=== PATIENT | female | born 1995 | race Caucasian/White ===

== ENCOUNTER → 2016-03-16 | Outpatient (REF) | payer OTHER ==
[~2016-03-16] MED LIST: ACET50TA PO; FERR325T3 PO; FIOR1CAP PO; IBUP80TA PO; NORE0.353 PO; PRENATAL VITAMIN PO; PRENMIS3 PO; PRENTAB7 PO
== END ==
LOC: M LAB REF 13:41
PROVIDERS: ATTEND Advanced Practice Midwife
DX: O12.13 Gestational proteinuria, third trimester (principal); O99.353 Diseases of the nervous system complicating pregnancy, third trimester; R51 Headache; Z3A.00 Weeks of gestation of pregnancy not specified

== ENCOUNTER → 2016-03-23 | Outpatient (CLI) | payer OTHER ==
[2016-03-23 12:22] LABS: MEAN CORPUSCULAR HEMOGLOBIN 29.1 pg (27.0-33.0); MEAN CORPUSCULAR HGB CONC 33.7 g/dl (32.0-36.5); MEAN CORPUSCULAR VOLUME 86.4 fl (80.0-96.0); RED CELL DISTRIBUTION WIDTH 13.1 % (11.5-14.5); WHITE BLOOD COUNT 9.6 K/mm3 (4.0-10.0)
== END ==
LOC: M LAB 10:32
PROVIDERS: ATTEND Advanced Practice Midwife
DX: Z36 Encounter for antenatal screening of mother (principal)

== ENCOUNTER → 2016-04-07 | Outpatient (REF) | payer OTHER | LOC: M LAB REF 12:42 | PROVIDERS: ATTEND Obstetrics & Gynecology | DX: Z36 Encounter for antenatal screening of mother (principal); Z3A.00 Weeks of gestation of pregnancy not specified ==

== ENCOUNTER → 2016-04-21 | Outpatient (REF) | payer OTHER | LOC: M LAB REF 13:09 | PROVIDERS: ATTEND Specialist | DX: Z36 Encounter for antenatal screening of mother (principal) ==

== ENCOUNTER 2016-05-15 18:29 | Outpatient (CLI) | payer OTHER ==
[~2016-05-15] VITALS: Ht 157.5 cm; Wt 72.0 kg
[2016-05-15 18:48] VITALS: BP 120/66
== END 2016-05-15 19:30 | disposition home or self-care (01) ==
LOC: M LDO 18:29
PROVIDERS: ATTEND Obstetrics & Gynecology
DX: O47.1 False labor at or after 37 completed weeks of gestation (principal); Z3A.40 40 weeks gestation of pregnancy

== ENCOUNTER 2016-05-20 14:16 | Inpatient (IN) | payer OTHER ==
[~2016-05-20] VITALS: Ht 157.5 cm; Wt 73.0 kg
[2016-05-20] MEDS: LR 1,000 ML IV SCH ×2 (14:44→21:10)
[2016-05-20] MEDS ORDERED: LACTATED RINGER'S 1000 ML IV STA (14:44)
[2016-05-20 14:46] VITALS: BP 126/70
[2016-05-20] MEDS ORDERED: miSOPROStol 50 MCG 1/2 TAB (S0191) SL ONE (15:00)
[2016-05-20 15:47] LABS: MEAN CORPUSCULAR HEMOGLOBIN 26.8 pg (27.0-33.0); MEAN CORPUSCULAR HGB CONC 33.3 g/dl (32.0-36.5); MEAN CORPUSCULAR VOLUME 80.4 fl (80.0-96.0); RED CELL DISTRIBUTION WIDTH 13.9 % (11.5-14.5); WHITE BLOOD COUNT 10.8 K/mm3 (4.0-10.0)
[2016-05-20 17:22] VITALS: BP 123/68
[2016-05-20 19:01] VITALS: BP 131/61
[2016-05-20] MEDS ORDERED: OXYTOCIN 30 UNITS IN 0.9% NaCl 500ML IV BAG (J2590) As Ordered ONE (21:01)
[2016-05-20 21:12] VITALS: BP 134/76
[2016-05-20] MEDS ORDERED: OXYTOCIN DRIP 30 UNITS in APPROPRIATE DILUENT 1 EA IV SCH (21:15)
[2016-05-20 21:44] VITALS: BP 136/79
[2016-05-20 22:43] VITALS: BP 120/65
[2016-05-21] MEDS ORDERED: FENTANYL 2MCG/ML ROPIVACAINE 0.2% NACL 250 ML CADD As Ordered ONE (02:16)
[2016-05-21] MEDS ORDERED: REFRIGERATOR IV KEYS XX PRN (02:27)
[2016-05-21] MEDS ORDERED: EPIDURAL/PCA KEYS XX PRN (02:27)
[2016-05-21] MEDS ORDERED: NALOXONE INJ 0.4 MG/1 ML VIAL (J2310) IV PRN (02:27)
[2016-05-21] MEDS ORDERED: LACTATED RINGER'S 1000 ML IV PRN (02:27)
[2016-05-21] MEDS ORDERED: ONDANSETRON 4MG/2ML VIAL (J2405) IV PRN ×2 (02:27→07:00)
[2016-05-21] MEDS ORDERED: ePHEDrine SULFATE 25 MG/5 ML(5MG/ML) SYRINGE IV PRN (02:27)
[2016-05-21] MEDS ORDERED: EPIDURAL COMMENT XX SCH (02:27)
[2016-05-21] MEDS ORDERED: FENTANYL/ROPIVACAINE/NACL CADD 250 ML EPIDURAL SCH (02:27)
[2016-05-21] MEDS ORDERED: diphenhydrAMINE INJ 50MG/ML VIAL (J1200) IV PRN (02:27)
[2016-05-21] MEDS ORDERED: LR 1,000 ML IV SCH (06:58)
[2016-05-21] MEDS ORDERED: OXYTOCIN DRIP 30 UNITS in APPROPRIATE DILUENT 1 EA IV SCH (06:58)
[2016-05-21] MEDS ORDERED: DOCUSATE SODIUM 100 MG CAP PO PRN (07:00)
[2016-05-21] MEDS ORDERED: PROMETHAZINE 25 MG TAB PO PRN (07:00)
[2016-05-21] MEDS ORDERED: RHOGAM 300 MCG (1500 IU) INJ (J2790) IM SCH (07:00)
[2016-05-21] MEDS ORDERED: DIBUCAINE 1% OINTMENT 30GM TOP PRN (07:00)
[2016-05-21] MEDS ORDERED: MEASLES,MUMPS,RUBELLA VACCINE INJ (MMR-II) (90707) SC SCH (07:00)
[2016-05-21 09:24] VITALS: BP 116/63
[2016-05-21] MEDS: PRENATAL VITAMIN TAB PO SCH (10:10)
[2016-05-21] MEDS: IBUPROFEN 800 MG TAB PO PRN ×2 (12:16→22:14)
[2016-05-21] MEDS: ACETAMINOPHEN 500 MG TAB PO PRN ×2 (14:05→20:14)
[2016-05-21 18:18] VITALS: BP 130/63
[2016-05-22] MEDS: ACETAMINOPHEN 500 MG TAB PO PRN (05:28)
[2016-05-22 05:34] VITALS: BP 123/69
[2016-05-22] MEDS: IBUPROFEN 800 MG TAB PO PRN ×2 (06:57→20:47)
[2016-05-22] MEDS: PRENATAL VITAMIN TAB PO SCH (09:40)
[2016-05-22] MEDS ORDERED: PERCOCET 5MG/325MG TAB PO PRN (10:00)
[2016-05-22] MEDS: PERCOCET 5MG/325MG TAB PO PRN ×3 (10:05→19:40)
[2016-05-23 06:18] VITALS: BP 120/63
[2016-05-23] MEDS: PERCOCET 5MG/325MG TAB PO PRN ×2 (08:24→13:21)
[2016-05-23] MEDS: PRENATAL VITAMIN TAB PO SCH (08:24)
[2016-05-23] MEDS ORDERED: OXYC1TAB23 PO (09:52)
[2016-05-23] MEDS ORDERED: IBUP-1114 PO (09:52)
[2016-05-23] MEDS ORDERED: ACET50TA PO (09:52)
[2016-05-23] MEDS ORDERED: COLA100C PO (09:52)
[2016-05-23] MEDS: IBUPROFEN 800 MG TAB PO PRN (13:21)
== END 2016-05-23 13:30 | disposition home or self-care (01) | DRG 560 ==
LOC: M LDI 14:16 → M OBS 05-21 09:11
PROVIDERS: ADMIT Obstetrics & Gynecology; ATTEND Obstetrics & Gynecology
PROC: 3E0DXGC Introduction of Other Therapeutic Substance into Mouth and Pharynx, External Approach (ICD-10-PCS; 2016-05-20)
PROC: 10E0XZZ Delivery of Products of Conception, External Approach (ICD-10-PCS; principal; 2016-05-21)
DX: O48.0 Post-term pregnancy (principal); Z37.0 Single live birth; Z3A.41 41 weeks gestation of pregnancy

== ENCOUNTER 2016-06-06 08:49 | Emergency (ER) | payer OTHER ==
[~2016-06-06] VITALS: Ht 157.5 cm; Wt 65.8 kg
[~2016-06-06 08:49] MED LIST changes: +COLA100C PO; +IBUP-1114 PO; +OXYC1TAB23 PO
--- NOTE | 2016-06-06 10:19 | REP ---
Clinical: Pain and swelling . Comparison: 07/23/2005. Technique: AP, lateral, bilateral oblique and sunrise views right knee . Findings: The osseous structures and joint spaces are intact and normal. There is no evidence for acute fracture or dislocation. No joint effusion is appreciated. Surrounding soft tissues are unremarkable. No subcutaneous emphysema or radiodense foreign body. Impression: Normal examination. No acute fracture or dislocation. Signed by Javier Lal MD 06/06/2016 10:11 A
[2016-06-06 10:55] VITALS: BP 118/67
[2016-06-06] MEDS ORDERED: NAPR500T PO (10:59)
== END 2016-06-06 11:52 | disposition home or self-care (01) ==
LOC: M ED 09:41
DX: M25.561 Pain in right knee (principal); Z79.899 Other long term (current) drug therapy

== ENCOUNTER 2016-11-28 14:44 | Emergency (ER) | payer OTHER ==
[~2016-11-28] VITALS: Ht 154.9 cm; Wt 65.5 kg
[~2016-11-28 14:44] MED LIST changes: -COLA100C PO; +COLA100C5 PO; +NAPR500T PO
[2016-11-28 14:45] VITALS: BP 143/77
[2016-11-28] MEDS ORDERED: CYCL10TA PO (16:23)
== END 2016-11-28 16:46 | disposition home or self-care (01) ==
LOC: M ED 14:44
DX: M54.5 Low back pain (principal); Z79.899 Other long term (current) drug therapy

== ENCOUNTER 2017-01-20 15:44 | Emergency (ER) | payer OTHER ==
[~2017-01-20] VITALS: Ht 157.5 cm; Wt 62.7 kg
[2017-01-20 15:44] VITALS: BP 139/83
[~2017-01-20 15:44] MED LIST changes: +CYCL10TA PO
[2017-01-20] MEDS ORDERED: VENL75TA2 PO (15:57)
[2017-01-20] MEDS ORDERED: LORazepam 2 MG TAB PO STA (16:33)
[2017-01-20 17:02] LABS: MEAN CORPUSCULAR HEMOGLOBIN 27.8 pg (27.0-33.0); MEAN CORPUSCULAR HGB CONC 32.4 g/dl (32.0-36.5); MEAN CORPUSCULAR VOLUME 85.8 fl (80.0-96.0); PLATELET COUNT, AUTOMATED 305 10^3/uL (150-450); RED CELL DISTRIBUTION WIDTH 12.8 % (11.5-14.5); WHITE BLOOD COUNT 7.7 10^3/uL (4.0-10.0)
[2017-01-20 17:19] LABS: CONTROL LINE HCG INT CTR LINE PRESENT
[2017-01-20 17:35] LABS: ALBUMIN 3.5 GM/DL (3.2-5.2); ALBUMIN/GLOBULIN RATIO 0.95 (1.00-1.93); ALKALINE PHOSPHATASE 77 U/L (45-117); ALT/SGPT 23 U/L (12-78); ANION GAP 9 MEQ/L (8-16); AST/SGOT 11 U/L (7-37); BILIRUBIN,DIRECT < 0.1 MG/DL (0.0-0.2); BILIRUBIN,TOTAL 0.1 MG/DL (0.2-1.0); BLOOD UREA NITROGEN 13 MG/DL (7-18); CALCIUM LEVEL 9.1 MG/DL (8.5-10.1); CARBON DIOXIDE LEVEL 25 MEQ/L (21-32); CHLORIDE LEVEL 110 MEQ/L (98-107); CREATININE FOR GFR 0.85 MG/DL (0.55-1.02); GLOMERULAR FILTRATION RATE > 60.0 (>60); GLUCOSE, FASTING 103 MG/DL (70-105); SODIUM LEVEL 144 MEQ/L (136-145); TOTAL PROTEIN 7.2 GM/DL (6.4-8.2)
[2017-01-20 17:54] LABS: METHADONE URINE NEGATIVE (NEGATIVE)
[2017-01-20] MEDS ORDERED: SUCRALFATE SUSP 1GM/10ML UD PO ONE (18:00)
[2017-01-20] MEDS ORDERED: PEPC1TAB4 PO (18:06)
[2017-01-20] MEDS ORDERED: SUCR1SS PO (18:06)
[2017-01-20] MEDS ORDERED: DICYCLOMINE INJ 20MG/2ML (J0500) IM ONE (18:15)
[2017-01-21] MEDS ORDERED: EFFE75CA75 PO (21:07)
== END 2017-01-20 18:28 | disposition home or self-care (01) ==
LOC: M ED 15:44
DX: F41.9 Anxiety disorder, unspecified (principal); F32.9 Major depressive disorder, single episode, unspecified
CPT/HCPCS: 80048; 80076; 80307; 80320; 80329; 84443; 84703; 85027; 96372; 99282; J0500

== ENCOUNTER 2017-01-21 16:27 | Inpatient (IN) | payer OTHER ==
[~2017-01-21] VITALS: Ht 157.5 cm; Wt 65.0 kg
[~2017-01-21 16:27] MED LIST changes: +PEPC1TAB4 PO; +SUCR1SS PO; +VENL75TA2 PO
[2017-01-21] MEDS ORDERED: ACETAMINOPHEN 325 MG TAB PO ONE (18:00)
[2017-01-21] MEDS ORDERED: ONDANSETRON 4 MG ORAL DISINTEGRATING TAB (S0181) PO ONE (18:00)
--- NOTE | 2017-01-21 18:19 | REP ---
CT Head without contrast HISTORY: Headache COMPARISON: 07/19/2011 There is no intraparenchymal hemorrhage, acute infarct, mass or midline shift. The ventricular system is normal in appearance. There is no extra cerebral collection. There is no fracture. The visualized sinuses are clear. IMPRESSION: There is no intracranial lesion. Signed by Rafiq Dill MD 01/21/2017 06:11 P
[2017-01-21 18:34] LABS: MEAN CORPUSCULAR HEMOGLOBIN 28.3 pg (27.0-33.0); MEAN CORPUSCULAR HGB CONC 32.8 g/dl (32.0-36.5); MEAN CORPUSCULAR VOLUME 86.2 fl (80.0-96.0); PLATELET COUNT, AUTOMATED 278 10^3/uL (150-450); RED CELL DISTRIBUTION WIDTH 12.8 % (11.5-14.5); WHITE BLOOD COUNT 8.1 10^3/uL (4.0-10.0)
[2017-01-21 18:55] LABS: METHADONE URINE NEGATIVE (NEGATIVE)
[2017-01-21 19:06] LABS: ALBUMIN 3.4 GM/DL (3.2-5.2); ALBUMIN/GLOBULIN RATIO 0.97 (1.00-1.93); ALKALINE PHOSPHATASE 75 U/L (45-117); ALT/SGPT 22 U/L (12-78); ANION GAP 7 MEQ/L (8-16); AST/SGOT 11 U/L (7-37); BILIRUBIN,DIRECT < 0.1 MG/DL (0.0-0.2); BILIRUBIN,TOTAL 0.1 MG/DL (0.2-1.0); BLOOD UREA NITROGEN 13 MG/DL (7-18); CALCIUM LEVEL 8.7 MG/DL (8.5-10.1); CARBON DIOXIDE LEVEL 27 MEQ/L (21-32); CHLORIDE LEVEL 110 MEQ/L (98-107); CREATININE FOR GFR 0.75 MG/DL (0.55-1.02); GLOMERULAR FILTRATION RATE > 60.0 (>60); GLUCOSE, FASTING 105 MG/DL (70-105); POTASSIUM SERUM 3.8 MEQ/L (3.5-5.1); SODIUM LEVEL 144 MEQ/L (136-145); TOTAL PROTEIN 6.9 GM/DL (6.4-8.2)
[2017-01-21] MEDS ORDERED: IBUPROFEN 800 MG TAB PO ONE (19:45)
[2017-01-21] MEDS ORDERED: traZODone 50 MG TAB PO PRN (20:45)
[2017-01-21] MEDS ORDERED: EFFE75CA75 PO (21:07)
[2017-01-22 02:35] VITALS: BP 120/80
[2017-01-22] MEDS: ACETAMINOPHEN TAB 650MG DOSE (2X325MG) PO PRN (10:18)
[2017-01-22] MEDS ORDERED: IBUPROFEN 600 MG TAB PO PRN (11:15)
[2017-01-22] MEDS ORDERED: ONDANSETRON 4 MG TAB (S0181) PO PRN (11:15)
[2017-01-22] MEDS: clonazePAM 0.5 MG TAB PO SCH ×3 (11:37→20:57)
[2017-01-22] MEDS: VENLAFAXINE 37.5 MG TAB PO SCH (11:37)
[2017-01-22] MEDS: SERTRALINE HCL 25 MG TABLET PO SCH (11:37)
[2017-01-22 13:00] LABS: CONTROL LINE HCG INT CTR LINE PRESENT
[2017-01-22 18:00] VITALS: BP 106/58
[2017-01-22] MEDS ORDERED: LEVOTAB18 PO (18:31)
--- NOTE | 2017-01-22 20:49 | MHHPE ---
DATE OF ADMISSION: 01/21/2017 LEGAL STATUS AT ADMISSION: 939 legal status. CHIEF COMPLAINT: "I cannot sleep." HISTORY OF PRESENT ILLNESS: A 21-year-old female with history of anxiety and panic disorder, admitted to our unit on a 939 legal status. According to the record, the patient came to the emergency department complaining of very high anxiety that is affecting significantly her quality of life. She said that cannot sleep more than two hours. The patient reports that is afraid that somebody will break in her house or hurt her children. The patient reports during the interview that has panic attacks. Describes them as feeling dizzy, lightheaded, has tachycardia, palpitations, feels short of breath. This can last between minutes to two hours. The patient also reports that is afraid to get out of the house or go to public places. Says that when is there, she gets very shaky, lightheaded, and feels that is the center of attention of everybody around. The patient reports having mood swings and depression "for a very long time" but states "anxiety is my problem." she went to see her primary physician who prescribed Effexor and was taking 75 mg by mouth twice a day but reports side effects, so she has asked the primary care provider (PCP) to change the medication but was unsuccessful, so she started decreasing the medication herself. During the interview, there is no evidence of psychotic symptoms. No auditory or visual hallucinations or delusions. Exploring depressive symptoms, the patient says that her sleep is between two and three hours. She was overeating, but the Effexor is now doing the opposite. Reports very low self esteem, low energy, and has intermittent pain in different places "some days" and reports a headache. PAST MEDICAL HISTORY: The patient denies any acute medical problems. PAST PSYCHIATRIC HISTORY: As above. The patient has been diagnosed of anxiety and panic disorder by her primary care physician. FAMILY HISTORY: The patient denies any psychiatric family problems except her grandmother who has now anxiety but that is elderly. SUBSTANCE ABUSE HISTORY: The patient denies any current or past problems with drugs or alcohol. SOCIAL HISTORY: She is with three children. The is supportive. The patient reports that she had difficulties learning, maybe paying attention during school, so "people made fun of me." The patient had tendency to keep to herself and remembers her having very low self esteem and difficulty making friends and acquaintances. REVIEW OF SYSTEMS: Substance abuse disorder: The patient answers negative to CAGE questionnaire. Somatization disorder: The patient reports intermittent pain "some days." Screening for conversion, gastrointestinal (GI), or sexual symptoms: Negative. Eating disorder screen for dieting, use of laxative, eating in binges is negative. Cognitive disorder screening for long and short-term memory impairment, orientation, and general information is negative. Psychotic disorder: No evidence of delusions, paranoia. No grandiosity or cheondoism preoccupation. No hallucinations, no looseness of associations. PHYSICAL EXAMINATION: As per physician stores assistant. LABORATORIES AT ADMISSION: Her CBC is within normal limits. CMP is unremarkable. Urine drug screen is negative. Blood alcohol level is negative. TSH is within normal limits. MENTAL STATUS EXAMINATION: The patient is dressed in [facility]. The patient is cooperative. Speech is clear, coherent, with normal rate and is spontaneous. The patient has fair eye contact. Mood is anxious and depressed. Affect is labile. The patient is oriented to time, place, person, and situation. Attention and concentration are fair. Instant recall, recent and remote memory are intact. The patient does not have auditory or visual hallucinations. The patient does not have paranoid, persecutory, somatic, grandiose or cheondoism delusions. The patient reports suicidal thoughts but is able to contract for safety. No homicidal ideation. Judgment and insight are fair. DIAGNOSES: AXIS I: Panic disorder. Generalized anxiety disorder. Unspecified depressive disorder. AXIS II: Deferred. AXIS III: None acute. INITIAL TREATMENT PLAN: The patient was admitted on a 939 legal status. Complete history was obtained. With her permission, family will be contact and database will be expanded. Her medication regimen will be reviewed and changed accordingly. She will be provided with protected environment. She will be treated with individual, group and milieu therapy. She will also receive supportive psychoeducation. Discharge planning will commence immediately. Length of stay will be between 5-7 days. Outpatient followup will be strongly recommended. The treatment plan will focus initially on depression, high anxiety, risk for suicide and effective coping.
[2017-01-22] MEDS: [UNRECOGNIZED DRUG - OTHER] PO SCH (20:58)
[2017-01-22] MEDS: traZODone 50 MG TAB PO SCH (20:58)
[2017-01-22] MEDS: LEVONORGESTREL PO SCH (20:58)
[2017-01-23 06:00] VITALS: BP 123/58
[2017-01-23] MEDS: LEVONORGESTREL PO SCH (08:06)
[2017-01-23] MEDS: SERTRALINE HCL 25 MG TABLET PO SCH (08:06)
[2017-01-23] MEDS: clonazePAM 0.5 MG TAB PO SCH ×2 (08:06→20:31)
[2017-01-23] MEDS: [UNRECOGNIZED DRUG - OTHER] PO SCH (08:06)
[2017-01-23] MEDS: VENLAFAXINE 37.5 MG TAB PO SCH (08:06)
[2017-01-23] MEDS: ACETAMINOPHEN TAB 650MG DOSE (2X325MG) PO PRN (16:28)
[2017-01-23 17:00] VITALS: BP 138/86
[2017-01-23] MEDS ORDERED: IBUPROFEN 800 MG TAB PO ONE (17:15)
[2017-01-23 18:00] VITALS: BP_SYST 111; BP_SYST 131; BP_DIAS 56; BP_DIAS 78
--- NOTE | 2017-01-23 20:19 | MHIPN ---
DATE: 01/23/2017 HISTORY: 21-year-old female with history of anxiety and panic disorder admitted for treatment of very high anxiety and panic episodes. SUBJECTIVE: "I'm feeling about the same." OBJECTIVE: No major changes from yesterday, although she was able to sleep well with the help of trazodone. Patient continues to have very high anxiety and panic episodes. No evidence of psychotic symptoms. No side effects from the medication. MENTAL STATUS EXAMINATION: Patient is dressed in [facility]. Patient is cooperative, has fair eye contact. Her speech is slow and monotone. Mood is depressed and very anxious. Affect is labile. No delusions or hallucinations. Memory, attention, and concentration are fair. Patient is able to contract for safety while in the hospital. Insight and judgment is fair. ASSESSMENT: 1. Depression. 2. High anxiety. 3. Panic episodes. PLAN: 1. Increase Zoloft to 50 mg by mouth every morning. 2. Klonopin 0.5 mg by mouth twice a day. 3. Continue tapering Effexor and discontinue in a few days. 4. Continue trazodone 50 mg by mouth nightly.
[2017-01-23] MEDS: traZODone 50 MG TAB PO SCH (20:31)
--- NOTE | 2017-01-24 00:48 | HPE ---
DATE OF ADMISSION: 01/21/2017 HISTORY OF PRESENT ILLNESS: Please refer to psychiatric history and evaluation for further details on this admission. This examination and history is intended for medical issues, which may need treatment, followup or consult on this 21-year-old female. ALLERGIES: No known allergies. PRIMARY CARE PROVIDER: Dr. Styles. SOCIAL HISTORY: She is with three children. Ethyl alcohol (EtOH) once or twice a month if that, wine or beer. Smokes none. Recreational drug use: States none. PAST MEDICAL HISTORY: Anxiety and panic disorder. PAST SURGICAL HISTORY: Tonsillectomy and adenoidectomy. HOME MEDICATIONS: - Effexor XR 75 mg by mouth twice a day - levonorgestrel/ethinyl ES 0.15/0.03 mg one by mouth daily, control pill FAMILY HISTORY: Noncontributory. LABORATORY STUDIES: CBC was normal. Sodium was 144, potassium 3.8, chloride 110, CO2 27. BUN and creatinine 13 and 0.75. Toxicology screen was negative. CT head on 01/21/2017 showed no intracranial lesions. EKG pending. REVIEW OF SYSTEMS: 10-system review was done. She is complaining of 5 days of a headache. It is getting worse. She has intermittent sharp pains on the right side of her head and left side. Today, she sees red flashes. When her heart is pounding, it seems to be pounding in her head as well. She is having intermittent blurred vision. No tingling or numbness of extremities. No weakness of extremities. No nausea. No vomiting. Otherwise, 10-system review was negative. PHYSICAL EXAMINATION: 21-year-old cooperative female in no acute distress. Height 62 inches, weight 63 kg, body mass index (BMI) 25.4. Patient is alert and oriented times three. Pupils equal and react to light. Extraocular muscles intact. Cornea and sclerae clear. Conjunctivae were normal. No facial asymmetry. Pharynx, tongue and gums pink and moist. Tongue is midline. Neck is supple without lymphadenopathy. No thyromegaly, no goiter. Chest clear to auscultation without wheeze or retraction. Heart is regular. Abdomen is benign. Bowel sounds positive. Genitourinary/rectal: Not done. Extremities show equal strength, full range of motion. No cyanosis, clubbing or edema. Peripheral pulses equal and palpable bilaterally. Skin is warm and dry. Negative Romberg. Gait steady. IMPRESSION/PLAN: Headache, possibly migraine. Monitor vital signs. May need MRI. Consider neurology consult. Patient advised to take ibuprofen and let us know the response or any increase in symptomatology.
[2017-01-24 06:22] VITALS: BP 88/52
[2017-01-24] MEDS: clonazePAM 0.5 MG TAB PO SCH ×2 (08:28→20:13)
[2017-01-24] MEDS: VENLAFAXINE 37.5 MG TAB PO SCH (08:28)
[2017-01-24] MEDS: [UNRECOGNIZED DRUG - OTHER] PO SCH (08:29)
[2017-01-24] MEDS: SERTRALINE HCL 50 MG TAB PO SCH (08:29)
[2017-01-24] MEDS: LEVONORGESTREL PO SCH (08:29)
--- NOTE | 2017-01-24 09:08 | IPNPDOC ---
Date Seen The patient was seen on 01/24/17. Progress Note HPI: 21yoF admitted to [facility] for unspecified depressive disorder, being medically examined today. Requested to re evaluate related to CARDONA. Pt was evaluated yesterday related to CARDONA. Pt was given Ibuprofen x 1 800mg po. Pt states this AM, CARDONA is resolved. Pt states "my CARDONA usually goes away if I take my medication". Pt with no voiced concerns today. Denies any fevers, chills, weakness, fatigue, CARDONA, CP, SOB, cough, palpitations , abdominal pain, N/V/D or changes in bowel or bladder habits. PMH: Anxiety and panic disorder. PSH: Tonsillectomy and adenoidectomy PE: GEN: 21yoF, appears stated age. Well-nourished, well developed. No acute distress. Alert and oriented x 3. Pleasant, interactive. HEENT: Normocephalic, atraumatic. Sclera are nonicteric. Conjunctiva without injection. Nose midline. Moist mucous membranes. EXT: No lower extremity edema appreciated. SKIN: [place], dry, warm. No rashes. NEURO: No focal deficits appreciated. EKG: pending. CT Head 01/23/17 There is no intracranial lesion. A&P: 21yoF admitted to [facility] for unspecified depressive disorder 1. Psych. Plan per Psychiatry. Obtain baseline EKG to assure the safety of psychiatric medications as they can prolong the QT interval. 2. CARDONA. resolved. Continue Tylenol or Ibuprofen as needed. 3. Cont OCP as per outpt meds. 4. Follow up with PCP on discharge. 5. Staff member Lloyd present. VS, I&O, 24H, Fishbone Vital Signs/I&O Vital Signs Date Time Temp Pulse Resp B/P (MAP) Pulse Ox O2 Delivery O2 Flow Rate FiO2 01/24/17 06:22 97.7 69 18 88/52 (64) 01/23/17 17:00 99 Room Air Laboratory Data CBC/BMP Item Value Date Time Sodium Level 144 MEQ/L 01/21/171821 Potassium Level 3.8 MEQ/L 01/21/171821 Chloride Level 110 MEQ/L H 01/21/171821 Carbon Dioxide Level 27 MEQ/L 01/21/171821 Anion Gap 7 MEQ/L L 11/10/17 1822 Blood Urea Nitrogen 13 MG/DL 01/21/17 1822 Creatinine 0.75 MG/DL 01/21/17 1822 Glomerular Filtration Rate > 60.0 01/21/17 1822 Fasting Glucose 105 MG/DL 01/21/17 1822 Calcium Level 8.7 MG/DL 01/21/17 1822 Total Bilirubin 0.1 MG/DL L 01/21/17 1822 Direct Bilirubin < 0.1 MG/DL 01/21/17 1822 Aspartate Amino Transf (AST/SGOT) 11 U/L 01/21/17 1822 Alanine Aminotransferase (ALT/SGPT) 22 U/L 01/21/17 1822 Alkaline Phosphatase 75 U/L 01/21/17 1822 Total Protein 6.9 GM/DL 01/21/17 1822 Albumin 3.4 GM/DL 01/21/17 1822 Albumin/Globulin Ratio 0.97 L 01/21/17 1822 Thyroid Stimulating Hormone (TSH) 0.778 uIU/ML 01/21/17 1822 Human Chorionic Gonadotropin, Qual NEGATIVE 01/22/17 1218 White Blood Count 8.1 10^3/uL 01/21/17 1822 Red Blood Count 4.42 10^6/uL 01/21/17 1822 Hemoglobin 12.5 g/dl 01/21/17 1822 Hematocrit 38.1 % 01/21/17 1822 Mean Corpuscular Volume 86.2 fl 01/21/17 1822 Mean Corpuscular Hemoglobin 28.3 pg 01/21/17 1822 Mean Corpuscular Hemoglobin Concent 32.8 g/dl 01/21/17 1822 Red Cell Distribution Width 12.8 % 01/21/17 1822 Platelet Count 278 10^3/uL 01/21/17 1822 Salicylates Level < 1.7 MG/DL L 01/21/17 1822 Urine Opiates Screen NEGATIVE 01/21/17 1818 Urine Methadone Screen NEGATIVE 01/21/17 1818 Acetaminophen Level < 2.0 UG/ML L 01/21/17 1822 Urine Barbiturates Screen NEGATIVE 01/21/17 1818 Urine Phencyclidine Screen NEGATIVE 01/21/17 1818 Urine Amphetamines Screen NEGATIVE 01/21/17 1818 Urine Benzodiazepines Screen NEGATIVE 01/21/17 1818 Urine Cocaine Metabolite Screen NEGATIVE 01/21/178 Urine Cannabinoids Screen NEGATIVE 01/21/171817 Ethyl Alcohol Level < 0.003 % 01/21/171821 Miya Bacon Jan 24, 2017 09:08
[2017-01-24 18:00] VITALS: BP 132/83
[2017-01-24] MEDS: traZODone 50 MG TAB PO SCH (20:13)
--- NOTE | 2017-01-24 20:51 | MHIPNPDOC ---
[facility] Progress Note Progress Note DATE OF SERVICE: 01/24/17 HISTORY: 21-year-old female with history of anxiety and panic disorder admitted for treatment of very high anxiety and panic episodes. VITAL SIGNS: See below. NEW TEST RESULTS: N/A CURRENT MEDICATIONS: See below. MENTAL STATUS EXAMINATION: Patient is a 21-year old female, who is alert, dressed in hospital clothes, with poor eye contact, appropriately groomed, with fair hygiene, looking sad. Speech: Is coherent. Language skills are fair. Thought processes including: Intact. Thought content: Redundant about her depression, not been able to cope, how she will preferred to than keep on living, guilty thoughts about leaving her children and her for her only 1 motivation to keep going. Abstract reasoning, and computation: Not assessed at this time. Description of associations: Good. Description of abnormal or psychotic thoughts: She denies auditory and visual hallucinations, denies thought delusions but admits to have passive suicidal ideation. She denies homicidal ideation. Judgment: Limited Insight: Limited Orientation: Oriented 3 Recent and remote memory: Intact Attention span and concentration: Good Language: Normal Fund of knowledge: Adequate Mood: Depressed Affect: Depressed, anxious DIAGNOSES: 1. Unspecified mood disorder, rule out bipolar disorder, depressed 2. Panic disorder ASSESSMENT: I was able to elicit some hypomanic/manic symptoms. Patient reported some days she feels very happy, she feels better than others and on those days she sings and dances. She has a decreased need for sleep during those days and she'll doesn't sleep, she can keep on going next day, she describes racing thoughts, spending too much money in unnecessary things that then she justifies it and says "I guess every girl goes that isn't that so ?". Patient seems to have bipolar 2 disorder, with severe depressions and hypomanic states. She also reported that she believes her sister might be bipolar because she has marked mood swings. Patient was started on Abilify as a mood stabilizer , Abilify. 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 Vital Signs Vital Signs Date Time Temp Pulse Resp B/P (MAP) Pulse Ox O2 Delivery O2 Flow Rate FiO2 01/24/17 18:00 98.2 82 16 132/83 (99) 01/23/17 17:00 99 Room Air Current Medications Current Medications Acetaminophen (Tylenol Tab) 650 mg Q6HP PRN PO HEADACHE or DISCOMFORT Last administered on 01/23/17 16:28; Start 01/21/17 at 20:45; Stop 01/23/17 at 17 :14; Status DC Al Hydrox/Mg Hydrox/Simethicone (Mylanta) 30 ml Q4HP PRN PO HEARTBURN/ INDIGESTION; Start 01/21/17 at 20:45; Stop 02/20/17 at 20:44 Aripiprazole (AbiLIFY) 2.5 mg BID PO Last administered on 01/24/17 20:14; Start 01/24/17 at 21:00; Stop 02/23/17 at 20:59 Clonazepam (KlonoPIN) 0.5 mg BID PO Last administered on 01/24/17 20:13; Start 01/23/17 at 21:00; Stop 01/30/17 at 20:59 Clonazepam (KlonoPIN) 0.5 mg TID PO Last administered on 01/23/17 08:06; Start 01/22/17 at 09:00; Stop 01/23/17 at 11:47; Status DC Home Med (Med Rec Complete!) ASDIRECTED XX ; Start 01/21/17 at 21:15; Stop at 21:15; Status DC Ibuprofen (Advil) 600 mg Q6HP PRN PO MODERATE PAIN (PS 5-7); Start 01/22/17 at 11:15; Stop 02/21/17 at 11:14 Magnesium Hydroxide (Milk Of Magnesia) 30 ml DAILYPRN PRN PO CONSTIPATION; Start 01/21/17 at 20:45; Stop 02/20/17 at 20:44 Miscellaneous (Unresolved Patient Own Med Order) SEE LABEL COMMENTS UNRESOLVED XX ; Start 01/22/17 at 00:01; Stop 01/22/17 at 20:02; Status DC Ondansetron HCl (Zofran) 4 mg Q6HP PRN PO NAUSEA OR VOMITING Last administered on 01/22/17 12:19; Start 01/22/17 at 11:15; Stop 02/21/17 at 11:14 Patient Own Medication (Patient'S Own Med) 1 ea DAILY PO Last administered on 01/24/17 08:29; Start 01/22/17 at 09:00; Stop 02/21/17 at 08:59 Sertraline HCl (Zoloft) 25 mg QAM PO Last administered on 01/23/17 08:06; Start 01/22/17 at 09:00; Stop 01/23/17 at 11:47; Status DC Sertraline HCl (Zoloft) 50 mg DAILY PO Last administered on 01/24/17 08:29; Start 01/24/17 at 09:00; Stop 02/23/17 at 08:59 Trazodone HCl (Desyrel) 50 mg QHS PO Last administered on 01/24/17 20:13; Start 01/22/17 at 21:00; Stop 02/21/17 at 20:59 Trazodone HCl (Desyrel) 50 mg QHSP PRN PO INSOMNIA; Start 01/21/17 at 20:45; Stop 02/20/17 at 20:44 Venlafaxine HCl (Effexor) 37.5 mg DAILY PO Last administered on 01/24/17 08: 28; Start 01/22/17 at 09:00; Stop 01/24/17 at 15:28; Status DC Allergies Coded Allergies: No Known Allergies (Verified , 01/20/17) CALIN GARCIA MD Jan 24, 2017 20:51
[2017-01-25 06:21] VITALS: BP 111/59
[2017-01-25] MEDS: [UNRECOGNIZED DRUG - OTHER] PO SCH (08:18)
[2017-01-25] MEDS: SERTRALINE HCL 50 MG TAB PO SCH (08:18)
[2017-01-25] MEDS: LEVONORGESTREL PO SCH (08:18)
[2017-01-25] MEDS: clonazePAM 0.5 MG TAB PO SCH (08:18)
[2017-01-25] MEDS: MAALOX 30 ML SUSP *UDC PO PRN (16:28)
--- NOTE | 2017-01-25 16:43 | MHIPNPDOC ---
[facility] Progress Note Progress Note DATE OF SERVICE: 01/25/17 HISTORY: 21-year-old female with history of anxiety and panic disorder admitted for treatment of very high anxiety and panic episodes. VITAL SIGNS: See below. NEW TEST RESULTS: N/A CURRENT MEDICATIONS: See below. MENTAL STATUS EXAMINATION: Patient is a 21-year old female, who is alert, dressed in hospital clothes, with poor eye contact, appropriately groomed, with fair hygiene, tearful Speech: Normal in rate, tone and volume Language skills are fair. Thought processes including: Intact. Thought content: Guilty thoughts about not being able to cope, about not being able to be there for her and child. Abstract reasoning, and computation: Not assessed at this time. Description of associations: Good. Description of abnormal or psychotic thoughts: She denies auditory and visual hallucinations, denies thought delusions but admits to have passive suicidal ideation. She denies homicidal ideation. Judgment: Limited Insight: Limited Orientation: Oriented 3 Recent and remote memory: Intact Attention span and concentration: Good Language: Normal Fund of knowledge: Adequate Mood: Depressed Affect: Depressed, anxious DIAGNOSES: 1. Unspecified mood disorder, rule out bipolar disorder, depressed 2. Panic disorder ASSESSMENT: patient is still depressed, she says she wasn't able to sleep well last night. She says she would like to be tested for ADHD because she says she had a learning disability. Explained that bipolar disorder, anxiety disorder and ADHD have some overlapping symptoms and that I hope she starts responding to medication, because I think she has bipolar disorder and once stable, we can think about treating ADHD, if she has it. MANAGEMENT PLAN: Increased Abilify to 5 mgs. PO BID and increased Ativan to 1 mg. PO TID. TIME SPENT: 30 minutes. Vital Signs Vital Signs Date Time Temp Pulse Resp B/P (MAP) Pulse Ox O2 Delivery O2 Flow Rate FiO2 01/25/17 06:21 99.3 76 18 111/59 (76) 01/23/17 17:00 99 Room Air Current Medications Current Medications Acetaminophen (Tylenol Tab) 650 mg Q6HP PRN PO HEADACHE or DISCOMFORT Last administered on 01/23/17t 16:28; Start 01/21/17 at 20:45; Stop 01/23/17 at 17 :14; Status DC Al Hydrox/Mg Hydrox/Simethicone (Mylanta) 30 ml Q4HP PRN PO HEARTBURN/ INDIGESTION Last administered on 01/25/17 16:28; Start 01/21/17 at 20:45; Stop 02/20/17 at 20:44 Aripiprazole (AbiLIFY) 2.5 mg BID PO Last administered on 01/25/17 08:18; Start 01/24/17 at 21:00; Stop 02/23/17 at 20:59 Clonazepam (KlonoPIN) 0.5 mg BID PO Last administered on 01/25/17 08:18; Start 01/23/17 at 21:00; Stop 01/30/17 at 20:59 Clonazepam (KlonoPIN) 0.5 mg TID PO Last administered on 01/23/17 08:06; Start 01/22/17 at 09:00; Stop 01/23/17 at 11:47; Status DC Home Med (Med Rec Complete!) ASDIRECTED XX ; Start 01/21/17 at 21:15; Stop at 21:15; Status DC Ibuprofen (Advil) 600 mg Q6HP PRN PO MODERATE PAIN (PS 5-7); Start 01/22/17 at 11:15; Stop 02/21/17 at 11:14 Magnesium Hydroxide (Milk Of Magnesia) 30 ml DAILYPRN PRN PO CONSTIPATION; Start 01/21/17 at 20:45; Stop 02/20/17 at 20:44 Miscellaneous (Unresolved Patient Own Med Order) SEE LABEL COMMENTS UNRESOLVED XX ; Start 01/22/17 at 00:01; Stop 01/22/17 at 20:02; Status DC Ondansetron HCl (Zofran) 4 mg Q6HP PRN PO NAUSEA OR VOMITING Last administered on 01/22/17 12:19; Start 01/22/17 at 11:15; Stop 02/21/17 at 11:14 Patient Own Medication (Patient'S Own Med) 1 ea DAILY PO Last administered on 01/25/17 08:18; Start 01/22/17 at 09:00; Stop 02/21/17 at 08:59 Sertraline HCl (Zoloft) 25 mg QAM PO Last administered on 01/23/17 08:06; Start 01/22/17 at 09:00; Stop 01/23/17 at 11:47; Status DC Sertraline HCl (Zoloft) 50 mg DAILY PO Last administered on 01/25/17 08:18; Start 01/24/17 at 09:00; Stop 02/23/17 at 08:59 Trazodone HCl (Desyrel) 50 mg QHS PO Last administered on 01/24/17 20:13; Start 01/22/17 at 21:00; Stop 02/21/17 at 20:59 Trazodone HCl (Desyrel) 50 mg QHSP PRN PO INSOMNIA; Start 01/21/17 at 20:45; Stop 02/20/17 at 20:44 Venlafaxine HCl (Effexor) 37.5 mg DAILY PO Last administered on 01/24/17 08: 28; Start 01/22/17 at 09:00; Stop 01/24/17 at 15:28; Status DC Allergies Coded Allergies: No Known Allergies (Verified , 01/20/17) CALIN GARCIA MD Jan 25, 2017 16:43
[2017-01-25 18:08] VITALS: BP 127/66
[2017-01-25] MEDS ORDERED: clonazePAM 1 MG TAB PO ONE (18:15)
[2017-01-25] MEDS: clonazePAM 1 MG TAB PO SCH (21:18)
[2017-01-25] MEDS: QUEtiapine FUMARATE 50 MG TAB PO SCH (21:18)
[2017-01-25] MEDS: traZODone 50 MG TAB PO SCH (21:18)
[2017-01-26 06:00] VITALS: BP 115/66
[2017-01-26] MEDS: [UNRECOGNIZED DRUG - OTHER] PO SCH (08:15)
[2017-01-26] MEDS: LEVONORGESTREL PO SCH (08:15)
[2017-01-26] MEDS: SERTRALINE HCL 50 MG TAB PO SCH (08:16)
[2017-01-26] MEDS: clonazePAM 1 MG TAB PO SCH ×3 (08:16→20:26)
[2017-01-26 08:20] VITALS: BP 134/79
--- NOTE | 2017-01-26 16:51 | MHIPNPDOC ---
[facility] Progress Note Progress Note DATE OF SERVICE: 01/26/17 HISTORY: 21-year-old female with history of anxiety and panic disorder admitted for treatment of very high anxiety and panic episodes. VITAL SIGNS: See below. NEW TEST RESULTS: N/A CURRENT MEDICATIONS: See below. MENTAL STATUS EXAMINATION: Patient is a 21-year old female, who is alert, dressed in personal clothes, with fair eye contact, appropriately groomed, with fair hygiene. Speech: Normal in rate, tone and volume Language skills are fair. Thought processes including: Coherent Thought content: Goal directed Abstract reasoning, and computation: Not assessed at this time. Description of associations: Good. Description of abnormal or psychotic thoughts: She denies auditory and visual hallucinations, she says she felt as if something has been crawling up her arms and her head and it made her feel scared. Denies thought delusions but admits to have passive, fleeting suicidal thoughts. She denies homicidal ideation. Judgment: Limited Insight: Limited Orientation: Oriented 3 Recent and remote memory: Intact Attention span and concentration: Good Language: Normal Fund of knowledge: Adequate Mood: Less depressed Affect: Less depressed and anxious DIAGNOSES: 1. Unspecified mood disorder, rule out bipolar disorder, depressed 2. Panic disorder ASSESSMENT: Patient is slightly less depressed, has more energy, her eye contact has improved, her mood and affect are less depressed, but she still has depressive thoughts, she is still anxious. She says she had more energy this morning, she woke up and she was ready to get out of bed. MANAGEMENT PLAN: Will continue with the same treatment plan. TIME SPENT: 30 minutes. Vital Signs Vital Signs Date Time Temp Pulse Resp B/P (MAP) Pulse Ox O2 Delivery O2 Flow Rate FiO2 01/26/17 08:20 119 20 134/79 (97) 96 01/26/17 06:00 100.1 01/23/17 17:00 Room Air Current Medications Current Medications Acetaminophen (Tylenol Tab) 650 mg Q6HP PRN PO HEADACHE or DISCOMFORT Last administered on 01/23/17 16:28; Start 01/21/17 at 20:45; Stop 01/23/17 at 17 :14; Status DC Al Hydrox/Mg Hydrox/Simethicone (Mylanta) 30 ml Q4HP PRN PO HEARTBURN/ INDIGESTION Last administered on 11/14/17at 16:28; Start 01/21/17 at 20:45; Stop 02/20/17 at 20:44 Aripiprazole (AbiLIFY) 2.5 mg BID PO Last administered on 01/25/17 08:18; Start 01/24/17 at 21:00; Stop 01/25/17 at 17:06; Status DC Aripiprazole (AbiLIFY) 5 mg BID PO Last administered on 01/26/17 08:16; Start 01/25/17 at 21:00; Stop 02/24/17 at 20:59 Clonazepam (KlonoPIN) 0.5 mg BID PO Last administered on 01/25/17 08:18; Start 01/23/17 at 21:00; Stop 01/25/17 at 17:08; Status DC Clonazepam (KlonoPIN) 0.5 mg TID PO Last administered on 01/23/17 08:06; Start 01/22/17 at 09:00; Stop 01/23/17 at 11:47; Status DC Clonazepam (KlonoPIN) 1 mg TID PO Last administered on 01/26/17 16:15; Start 01/25/17 at 21:00; Stop 01/30/17 at 20:59 Home Med (Med Rec Complete!) ASDIRECTED XX ; Start 01/21/17 at 21:15; Stop at 21:15; Status DC Ibuprofen (Advil) 600 mg Q6HP PRN PO MODERATE PAIN (PS 5-7); Start 01/22/17 at 11:15; Stop 02/21/17 at 11:14 Magnesium Hydroxide (Milk Of Magnesia) 30 ml DAILYPRN PRN PO CONSTIPATION; Start 01/21/17 at 20:45; Stop 02/20/17 at 20:44 Miscellaneous (Unresolved Patient Own Med Order) SEE LABEL COMMENTS UNRESOLVED XX ; Start 01/22/17 at 00:01; Stop 01/22/17 at 20:02; Status DC Ondansetron HCl (Zofran) 4 mg Q6HP PRN PO NAUSEA OR VOMITING Last administered on 01/22/17 12:19; Start 01/22/17 at 11:15; Stop 02/21/17 at 11:14 Patient Own Medication (Patient'S Own Med) 1 ea DAILY PO Last administered on 01/26/17 08:15; Start 01/22/17 at 09:00; Stop 02/21/17 at 08:59 Quetiapine Fumarate (SEROquel) 50 mg QHS PO Last administered on 01/25/17 21: 18; Start 01/25/17 at 21:00; Stop 02/24/17 at 20:59 Sertraline HCl (Zoloft) 25 mg QAM PO Last administered on 01/23/17 08:06; Start 01/22/17 at 09:00; Stop 01/23/17 at 11:47; Status DC Sertraline HCl (Zoloft) 50 mg DAILY PO Last administered on 01/26/17 08:16; Start 01/24/17 at 09:00; Stop 02/23/17 at 08:59 Trazodone HCl (Desyrel) 50 mg QHS PO Last administered on 01/25/17 21:18; Start 01/22/17 at 21:00; Stop 02/21/17 at 20:59 Trazodone HCl (Desyrel) 50 mg QHSP PRN PO INSOMNIA; Start 01/21/17 at 20:45; Stop 02/20/17 at 20:44; Status Cancel Venlafaxine HCl (Effexor) 37.5 mg DAILY PO Last administered on 01/24/17 08: 28; Start 01/22/17 at 09:00; Stop 01/24/17 at 15:28; Status DC Allergies Coded Allergies: No Known Allergies (Verified , 01/20/17) CALIN GARCIA MD Jan 26, 2017 16:51
[2017-01-26] MEDS ORDERED: OLANZapine ORAL DISINTEGRATING TAB 5MG PO PRN (17:30)
[2017-01-26 18:00] VITALS: BP 123/58
[2017-01-26] MEDS: QUEtiapine FUMARATE 50 MG TAB PO SCH (20:26)
[2017-01-26] MEDS: traZODone 50 MG TAB PO SCH (20:26)
--- NOTE | 2017-01-27 00:06 | ECGEPIP ---
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
[2017-01-27 06:28] VITALS: BP 119/68
[2017-01-27 07:12] LABS: BASO # 0.1 10^3/uL (0.0-0.2); BASO % 0.5 % (0.0-1.0); EOS # 0.2 10^3/uL (0.0-0.50); EOS % 1.9 % (0.0-3.0); IMMATURE GRANULOCYTE % 0.2 % (0-0); LYMPH # 3.2 10^3/uL (1.5-6.5); LYMPH % 34.4 % (24.0-44.0); MEAN CORPUSCULAR HEMOGLOBIN 28.5 pg (27.0-33.0); MEAN CORPUSCULAR HGB CONC 32.9 g/dl (32.0-36.5); MEAN CORPUSCULAR VOLUME 86.6 fl (80.0-96.0); MONO # 0.7 10^3/uL (0.0-0.8); MONO % 7.6 % (0.0-5.0); NEUTROPHILS # 5.1 10^3/uL (1.8-7.7); NEUTROPHILS % 55.4 % (36.0-66.0); PLATELET COUNT, AUTOMATED 291 10^3/uL (150-450); RED CELL DISTRIBUTION WIDTH 13.1 % (11.5-14.5); WHITE BLOOD COUNT 9.3 10^3/uL (4.0-10.0)
[2017-01-27 07:34] LABS: ALBUMIN 3.5 GM/DL (3.2-5.2); ALBUMIN/GLOBULIN RATIO 0.92 (1.00-1.93); ALKALINE PHOSPHATASE 75 U/L (45-117); ALT/SGPT 24 U/L (12-78); ANION GAP 8 MEQ/L (8-16); AST/SGOT 13 U/L (7-37); BILIRUBIN,TOTAL 0.2 MG/DL (0.2-1.0); BLOOD UREA NITROGEN 22 MG/DL (7-18); CALCIUM LEVEL 9.1 MG/DL (8.5-10.1); CARBON DIOXIDE LEVEL 24 MEQ/L (21-32); CHLORIDE LEVEL 109 MEQ/L (98-107); CREATININE FOR GFR 0.99 MG/DL (0.55-1.02); GLOMERULAR FILTRATION RATE > 60.0 (>60); GLUCOSE, FASTING 89 MG/DL (70-105); POTASSIUM SERUM 4.3 MEQ/L (3.5-5.1); SODIUM LEVEL 141 MEQ/L (136-145); TOTAL PROTEIN 7.3 GM/DL (6.4-8.2)
--- NOTE | 2017-01-27 07:34 | REP ---
Clinical: Trauma. Technique: Frontal view of the chest with multiple views of the bilateral hemithoraces. Findings: Frontal view of the chest demonstrates no acute cardiopulmonary process. Multiple views of the right and left hemithorax demonstrates no obvious acute rib fracture or pathology. Impression: Normal bilateral rib series Signed by Javier Lal MD 01/27/2017 07:25 A
[2017-01-27] MEDS: clonazePAM 1 MG TAB PO SCH ×3 (08:48→20:03)
[2017-01-27] MEDS: [UNRECOGNIZED DRUG - OTHER] PO SCH (08:49)
[2017-01-27] MEDS: LEVONORGESTREL PO SCH (08:49)
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
[2017-01-27] MEDS: SERTRALINE HCL 50 MG TAB PO SCH (09:24)
[2017-01-27] MEDS ORDERED: EXCEDRIN MIGRAINE TABLET PO PRN (09:30)
[2017-01-27] MEDS ORDERED: IBUPROFEN 600 MG TAB PO PRN (09:30)
--- NOTE | 2017-01-27 10:56 | REP ---
CT Head without contrast HISTORY: Injury COMPARISON: 01/21/1970 There is no intraparenchymal hemorrhage, acute infarct, mass or midline shift. The ventricular system is normal in appearance. There is no extra cerebral collection. There is no fracture. The visualized sinuses are clear. IMPRESSION: There is no intracranial lesion. Signed by Rafiq Dill MD 01/27/2017 10:46 A
--- NOTE | 2017-01-27 11:19 | REP ---
CT CERVICAL SPINE WITHOUT CONTRAST: HISTORY: Injury. COMPARISON: 07/19/2011 There is no acute fracture or subluxation. There is no disc bulge or herniation. The spinal canal and neural foramina are patent. The intervertebral discs and vertebral bodies are normal in height. IMPRESSION: There is no acute fracture or subluxation. Signed by Rafiq Dill MD 01/27/2017 11:53 A
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
[2017-01-27 13:11] VITALS: BP 135/66
[2017-01-27 13:12] VITALS: BP_SYST 127; BP_SYST 132; BP_DIAS 68
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
[2017-01-27] MEDS ORDERED: diphenhydrAMINE 50 MG CAP PO ONE (15:00)
[2017-01-27] MEDS: MOM 30ML SUSPENSION UDC PO PRN (16:08)
[2017-01-27 18:00] VITALS: BP 136/76
[2017-01-27] MEDS: traZODone 50 MG TAB PO SCH (20:02)
[2017-01-27] MEDS: QUEtiapine FUMARATE 50 MG TAB PO SCH (20:03)
[2017-01-28 06:54] VITALS: BP 119/58
[2017-01-28] MEDS: clonazePAM 1 MG TAB PO SCH ×3 (08:06→20:08)
[2017-01-28] MEDS: [UNRECOGNIZED DRUG - OTHER] PO SCH (08:06)
[2017-01-28] MEDS: SERTRALINE HCL 50 MG TAB PO SCH (08:06)
[2017-01-28] MEDS: LEVONORGESTREL PO SCH (08:06)
[2017-01-28 08:26] VITALS: BP_SYST 140; BP_SYST 141; BP_SYST 145; BP_DIAS 76; BP_DIAS 77; BP_DIAS 79
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
[2017-01-28] MEDS ORDERED: diphenhydrAMINE INJ 50MG/ML VIAL (J1200) IM PRN (15:15)
[2017-01-28] MEDS: GABAPENTIN 100 MG CAP PO SCH ×2 (15:46→20:08)
[2017-01-28] MEDS ORDERED: diphenhydrAMINE 50 MG CAP PO PRN (16:00)
[2017-01-28 19:06] VITALS: BP_SYST 136; BP_SYST 138; BP_DIAS 80
[2017-01-28] MEDS: MAALOX 30 ML SUSP *UDC PO PRN (19:12)
[2017-01-28] MEDS: traZODone 50 MG TAB PO SCH (20:08)
[2017-01-28] MEDS: QUEtiapine FUMARATE 50 MG TAB PO SCH (20:08)
[2017-01-28] MEDS ORDERED: ARIPiprazole 10 MG TAB PO SCH (21:00)
[2017-01-28] MEDS: DOCUSATE SODIUM 100 MG CAP PO SCH (21:17)
[2017-01-29] MEDS: [UNRECOGNIZED DRUG - OTHER] PO SCH (08:24)
[2017-01-29] MEDS: DOCUSATE SODIUM 100 MG CAP PO SCH ×2 (08:24→20:26)
[2017-01-29] MEDS: GABAPENTIN 100 MG CAP PO SCH ×3 (08:24→20:26)
[2017-01-29] MEDS: SERTRALINE 100 MG TAB PO SCH (08:24)
[2017-01-29] MEDS: clonazePAM 1 MG TAB PO SCH (08:24)
[2017-01-29] MEDS: LEVONORGESTREL PO SCH (08:24)
[2017-01-29] MEDS: IBUPROFEN 800 MG TAB PO PRN (09:44)
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
[2017-01-29 18:00] VITALS: BP_SYST 129; BP_SYST 135; BP_SYST 136; BP_DIAS 71; BP_DIAS 82; BP_DIAS 91
[2017-01-29] MEDS: QUEtiapine FUMARATE 50 MG TAB PO SCH (20:26)
[2017-01-30 06:22] VITALS: BP_SYST 118; BP_SYST 119; BP_SYST 121; BP_DIAS 56; BP_DIAS 60; BP_DIAS 62
[2017-01-30] MEDS: LEVONORGESTREL PO SCH (08:01)
[2017-01-30] MEDS: [UNRECOGNIZED DRUG - OTHER] PO SCH (08:01)
[2017-01-30] MEDS: GABAPENTIN 100 MG CAP PO SCH ×3 (08:01→20:12)
[2017-01-30] MEDS: SERTRALINE 100 MG TAB PO SCH (08:01)
[2017-01-30] MEDS: DOCUSATE SODIUM 100 MG CAP PO SCH ×2 (08:01→20:12)
[2017-01-30] MEDS: MOM 30ML SUSPENSION UDC PO PRN (09:05)
[2017-01-30 18:00] VITALS: BP 144/73
[2017-01-30] MEDS: IBUPROFEN 800 MG TAB PO PRN (18:09)
[2017-01-30] MEDS: QUEtiapine FUMARATE 50 MG TAB PO SCH (20:12)
[2017-01-31] MEDS: [UNRECOGNIZED DRUG - OTHER] PO SCH (08:14)
[2017-01-31] MEDS: LEVONORGESTREL PO SCH (08:14)
[2017-01-31] MEDS: DOCUSATE SODIUM 100 MG CAP PO SCH (08:15)
[2017-01-31] MEDS: SERTRALINE 100 MG TAB PO SCH (08:15)
[2017-01-31] MEDS: GABAPENTIN 100 MG CAP PO SCH (08:15)
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
[2017-01-31] MEDS ORDERED: GABA-279 PO (13:39)
[2017-01-31] MEDS ORDERED: DIPH50CA PO (13:39)
[2017-01-31] MEDS ORDERED: QUET5TAB PO (13:39)
[2017-01-31] MEDS ORDERED: ARIP5TA PO (13:39)
[2017-01-31] MEDS ORDERED: SERT-138 PO (13:39)
[2017-01-31] MEDS ORDERED: ABIL10TA9 PO (13:47)
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
[2017-02-01] MEDS ORDERED: ZYPR5TAB2 PO (13:48)
[2017-02-01] MEDS ORDERED: ABIL10TA9 PO (14:49)
[2017-02-01] MEDS ORDERED: ZYPR10TA PO (15:45)
== END 2017-01-31 13:50 | disposition home or self-care (01) | DRG 753 ==
LOC: M ED 16:27 → M ED INP 20:38 → M PSY 01-22 02:30
PROVIDERS: ADMIT Psychiatry & Neurology Psychiatry; ATTEND Psychiatry & Neurology Psychiatry
DX: F31.81 Bipolar II disorder (principal); F41.0 Panic disorder [episodic paroxysmal anxiety]; F41.1 Generalized anxiety disorder; G43.909 Migraine, unspecified, not intractable, without status migrainosus; Z79.899 Other long term (current) drug therapy

== ENCOUNTER 2017-05-18 20:32 | Emergency (ER) | payer MEDICAID, SELFPAY, OTHER ==
[2017-05-18] MEDS: CLINDAMYCIN 150 MG CAP PO (22:55)
== END 2017-05-18 22:56 | disposition home or self-care (01) ==
LOC: M ED 20:32
DX: L08.9 Local infection of the skin and subcutaneous tissue, unspecified (principal); F41.9 Anxiety disorder, unspecified; F33.9 Major depressive disorder, recurrent, unspecified; F17.210 Nicotine dependence, cigarettes, uncomplicated
CPT/HCPCS: 99283

== ENCOUNTER → 2017-05-31 | Outpatient (REF) | payer MEDICAID ==
[2017-05-31 22:18] LABS: APPEARANCE, URINE CLOUDY (CLEAR); BACTERIA, URINE AUTO 3+ (NEGATIVE); BILIRUBIN, URINE AUTO NEGATIVE (NEGATIVE); BLOOD, URINE BLOOD NEGATIVE (NEGATIVE); COLOR, URINE YELLOW (YELLOW); GLUCOSE, URINE (UA) AUTO NEGATIVE (NEGATIVE); KETONE, URINE AUTO NEGATIVE (NEGATIVE); LEUKOCYTE ESTERASE, URINE AUTO 2+ (NEGATIVE); MUCUS, URINE SMALL (NEGATIVE); NITRITE, URINE AUTO NEGATIVE (NEGATIVE); PROTEIN, URINE AUTO NEGATIVE (NEGATIVE); RBC, URINE AUTO 2 /HPF (0-3); SPECIFIC GRAVITY URINE AUTO 1.028 (1.002-1.035); SQUAMOUS EPITHELIAL CELL UR AU 12 /HPF (0-6); UROBILINOGEN, URINE AUTO 0.2 mg/dL (0.0-2.0); WBC, URINE AUTO 4 /HPF (0-3)
== END ==
LOC: M LAB REF 09:31
DX: N39.0 Urinary tract infection, site not specified (principal)

== ENCOUNTER 2017-06-06 16:34 | Emergency (ER) | payer MEDICAID | END 2017-06-06 20:07 | disposition home or self-care (01) | LOC: M ED 16:34 | DX: G89.4 Chronic pain syndrome (principal); M79.7 Fibromyalgia; R51 Headache; F17.210 Nicotine dependence, cigarettes, uncomplicated; Z79.899 Other long term (current) drug therapy | CPT/HCPCS: 99283 ==

== ENCOUNTER → 2017-09-28 | Outpatient (REF) | payer OTHER ==
[2017-09-28 21:41] LABS: APPEARANCE, URINE HAZY (CLEAR); BACTERIA, URINE AUTO 2+ (NEGATIVE); BILIRUBIN, URINE AUTO NEGATIVE (NEGATIVE); BLOOD, URINE BLOOD NEGATIVE (NEGATIVE); COLOR, URINE YELLOW (YELLOW); GLUCOSE, URINE (UA) AUTO NEGATIVE (NEGATIVE); KETONE, URINE AUTO NEGATIVE (NEGATIVE); LEUKOCYTE ESTERASE, URINE AUTO 2+ (NEGATIVE); NITRITE, URINE AUTO NEGATIVE (NEGATIVE); PROTEIN, URINE AUTO NEGATIVE (NEGATIVE); RBC, URINE AUTO 2 /HPF (0-3); SPECIFIC GRAVITY URINE AUTO 1.021 (1.002-1.035); SQUAMOUS EPITHELIAL CELL UR AU 8 /HPF (0-6); UROBILINOGEN, URINE AUTO 0.2 mg/dL (0.0-2.0); WBC, URINE AUTO 13 /HPF (0-3)
== END ==
LOC: M LAB REF 10:59
DX: N39.0 Urinary tract infection, site not specified (principal)
CPT/HCPCS: 81001

== ENCOUNTER 2017-10-02 15:02 | Inpatient (IN) | payer MEDICAID, OTHER ==
[2017-10-02 15:50] LABS: HEMATOCRIT 40.3 % (36.0-47.0); HEMOGLOBIN 13.3 g/dl (12.0-15.5); MEAN CORPUSCULAR HEMOGLOBIN 28.4 pg (27.0-33.0); MEAN CORPUSCULAR VOLUME 86.1 fl (80.0-96.0); PLATELET COUNT, AUTOMATED 280 10^3/uL (150-450); RED BLOOD COUNT 4.68 10^6/uL (4.00-5.40); RED CELL DISTRIBUTION WIDTH 13.8 % (11.5-14.5); WHITE BLOOD COUNT 6.8 10^3/uL (4.0-10.0)
[2017-10-02 16:02] LABS: CONTROL LINE HCG INT CTR LINE PRESENT; HCG, SERUM QUALITATIVE NEGATIVE (NEGATIVE)
[2017-10-02 16:09] LABS: AMPHETAMINES LEVEL URINE NEGATIVE (NEGATIVE); BARBITURATES URINE NEGATIVE (NEGATIVE); BENZODIAZEPINES URINE NEGATIVE (NEGATIVE); CANNABINOIDS URINE NEGATIVE (NEGATIVE); COCAINE METABOLITE URINE NEGATIVE (NEGATIVE); METHADONE URINE NEGATIVE (NEGATIVE); OPIATES URINE NEGATIVE (NEGATIVE); PHENCYCLIDINE URINE NEGATIVE (NEGATIVE)
[2017-10-02 16:20] LABS: ACETAMINOPHEN LEVEL < 2.0 UG/ML (10.0-30.0); ALBUMIN 3.7 GM/DL (3.2-5.2); ALBUMIN/GLOBULIN RATIO 1.03 (1.00-1.93); ALKALINE PHOSPHATASE 70 U/L (45-117); ALT/SGPT 21 U/L (12-78); ANION GAP 7 MEQ/L (8-16); AST/SGOT 12 U/L (7-37); BILIRUBIN,DIRECT < 0.1 MG/DL (0.0-0.2); BILIRUBIN,TOTAL 0.2 MG/DL (0.2-1.0); BLOOD UREA NITROGEN 16 MG/DL (7-18); CALCIUM LEVEL 8.3 MG/DL (8.5-10.1); CARBON DIOXIDE LEVEL 27 MEQ/L (21-32); CHLORIDE LEVEL 109 MEQ/L (98-107); CREATININE FOR GFR 1.03 MG/DL (0.55-1.30); GLOMERULAR FILTRATION RATE > 60.0 (>60); GLUCOSE, FASTING 68 MG/DL (70-100); POTASSIUM SERUM 4.6 MEQ/L (3.5-5.1); SALICYLATE LEVEL 2.7 MG/DL (5.0-30.0); SODIUM LEVEL 143 MEQ/L (136-145); THYROID STIMULATING HORMONE 0.774 uIU/ML (0.358-3.740); TOTAL PROTEIN 7.3 GM/DL (6.4-8.2)
[2017-10-02 16:21] LABS: ETHYL ALCOHOL (ETHANOL) < 0.003 % (0.000-0.010)
[2017-10-02] MEDS ORDERED: MOM 30ML SUSPENSION UDC PO (18:15)
[2017-10-02] MEDS ORDERED: MAALOX 30 ML SUSP *UDC PO (18:15)
[2017-10-02] MEDS: traZODone 50 MG TAB PO (23:09)
[2017-10-02] MEDS: IBUPROFEN 400 MG TAB PO (23:10)
[2017-10-03] MEDS: IBUPROFEN 400 MG TAB PO ×2 (08:24→17:05)
[2017-10-03] MEDS: GABAPENTIN 100 MG CAP PO (20:38)
[2017-10-03] MEDS: traZODone 50 MG TAB PO (21:38)
[2017-10-04] MEDS: GABAPENTIN 100 MG CAP PO ×3 (09:03→21:08)
[2017-10-04] MEDS: PARoxetine 10MG TABLET PO (09:03)
[2017-10-04] MEDS: clonazePAM 0.5 MG TAB PO ×2 (13:29→21:08)
[2017-10-04] MEDS: IBUPROFEN 400 MG TAB PO (21:08)
[2017-10-04] MEDS: traZODone 50 MG TAB PO (22:05)
[2017-10-05] MEDS: IBUPROFEN 400 MG TAB PO ×2 (07:04→18:02)
[2017-10-05] MEDS: GABAPENTIN 100 MG CAP PO (08:07)
[2017-10-05] MEDS: clonazePAM 0.5 MG TAB PO ×3 (08:07→20:13)
[2017-10-05] MEDS: PARoxetine 20 MG TAB PO (08:07)
[2017-10-05] MEDS: ACETAMINOPHEN TAB 650MG DOSE (2X325MG) PO ×2 (12:52→20:12)
[2017-10-05] MEDS: GABAPENTIN 300 MG CAP PO ×2 (15:16→20:10)
[2017-10-05] MEDS: traZODone 50 MG TAB PO (22:14)
[2017-10-06] MEDS: clonazePAM 0.5 MG TAB PO ×3 (08:27→19:39)
[2017-10-06] MEDS: IBUPROFEN 400 MG TAB PO (08:28)
[2017-10-06] MEDS: PARoxetine 20 MG TAB PO (08:28)
[2017-10-06] MEDS: GABAPENTIN 300 MG CAP PO ×3 (08:28→21:09)
[2017-10-06] MEDS: AUGMENTIN 875 MG TAB PO ×2 (10:23→21:09)
[2017-10-06] MEDS: CHLORHEXIDINE ORAL RINSE 0.12%/15ML 120ML BOTTLE SSP ×3 (12:40→21:09)
[2017-10-06] MEDS: NICOTINE 14 MG/24 HR TRANSDERMAL TD (14:53)
[2017-10-06] MEDS: IBUPROFEN 600 MG TAB PO (16:53)
[2017-10-06] MEDS: traZODone 50 MG TAB PO (22:23)
[2017-10-07] MEDS: IBUPROFEN 600 MG TAB PO ×2 (06:28→15:19)
[2017-10-07] MEDS: PARoxetine 10MG TABLET PO (08:18)
[2017-10-07] MEDS: AUGMENTIN 875 MG TAB PO ×2 (08:18→20:27)
[2017-10-07] MEDS: NICOTINE 14 MG/24 HR TRANSDERMAL TD (08:19)
[2017-10-07] MEDS: GABAPENTIN 300 MG CAP PO ×3 (08:19→20:27)
[2017-10-07] MEDS: CHLORHEXIDINE ORAL RINSE 0.12%/15ML 120ML BOTTLE SSP ×3 (08:19→20:27)
[2017-10-07] MEDS: clonazePAM 0.5 MG TAB PO (08:20)
[2017-10-07] MEDS: clonazePAM 1 MG TAB PO ×2 (12:20→20:27)
[2017-10-07] MEDS: ACETAMINOPHEN TAB 650MG DOSE (2X325MG) PO (13:00)
[2017-10-07] MEDS: traZODone 50 MG TAB PO (22:46)
[2017-10-08] MEDS: IBUPROFEN 600 MG TAB PO ×3 (00:08→20:28)
[2017-10-08] MEDS: PARoxetine 10MG TABLET PO (08:51)
[2017-10-08] MEDS: AUGMENTIN 875 MG TAB PO ×2 (08:51→20:24)
[2017-10-08] MEDS: GABAPENTIN 300 MG CAP PO ×3 (08:51→20:24)
[2017-10-08] MEDS: clonazePAM 1 MG TAB PO ×3 (08:51→22:45)
[2017-10-08] MEDS: CHLORHEXIDINE ORAL RINSE 0.12%/15ML 120ML BOTTLE SSP ×3 (08:52→20:24)
[2017-10-08] MEDS: NICOTINE 14 MG/24 HR TRANSDERMAL TD (08:53)
[2017-10-08] MEDS: traZODone 50 MG TAB PO (22:45)
[2017-10-09] MEDS: NICOTINE 14 MG/24 HR TRANSDERMAL TD (09:09)
[2017-10-09] MEDS: AUGMENTIN 875 MG TAB PO ×2 (09:10→20:21)
[2017-10-09] MEDS: PARoxetine 10MG TABLET PO (09:10)
[2017-10-09] MEDS: GABAPENTIN 300 MG CAP PO ×3 (09:10→20:21)
[2017-10-09] MEDS: clonazePAM 1 MG TAB PO ×2 (09:10→16:46)
[2017-10-09] MEDS: IBUPROFEN 600 MG TAB PO (09:13)
[2017-10-09] MEDS: CHLORHEXIDINE ORAL RINSE 0.12%/15ML 120ML BOTTLE SSP ×3 (11:08→20:21)
[2017-10-09] MEDS: ACETAMINOPHEN TAB 650MG DOSE (2X325MG) PO (15:11)
[2017-10-09] MEDS: traZODone 50 MG TAB PO (21:13)
[2017-10-10] MEDS: NICOTINE 14 MG/24 HR TRANSDERMAL TD (08:47)
[2017-10-10] MEDS: CHLORHEXIDINE ORAL RINSE 0.12%/15ML 120ML BOTTLE SSP ×3 (08:47→21:16)
[2017-10-10] MEDS: PARoxetine 10MG TABLET PO (08:47)
[2017-10-10] MEDS: GABAPENTIN 300 MG CAP PO ×3 (08:47→21:15)
[2017-10-10] MEDS: AUGMENTIN 875 MG TAB PO ×2 (08:47→21:15)
[2017-10-10] MEDS: clonazePAM 1 MG TAB PO ×2 (08:49→18:01)
[2017-10-10] MEDS: diphenhydrAMINE 25 MG CAP PO (21:17)
[2017-10-10] MEDS: traZODone 50 MG TAB PO (22:34)
[2017-10-11] MEDS: clonazePAM 1 MG TAB PO ×2 (08:25→15:40)
[2017-10-11] MEDS: AUGMENTIN 875 MG TAB PO ×2 (08:25→21:00)
[2017-10-11] MEDS: CHLORHEXIDINE ORAL RINSE 0.12%/15ML 120ML BOTTLE SSP ×3 (08:25→21:00)
[2017-10-11] MEDS: GABAPENTIN 300 MG CAP PO ×3 (08:25→21:00)
[2017-10-11] MEDS: NICOTINE 14 MG/24 HR TRANSDERMAL TD (08:25)
[2017-10-11] MEDS: PARoxetine 10MG TABLET PO (08:25)
[2017-10-12] MEDS: traZODone 50 MG TAB PO ×2 (00:22→21:25)
[2017-10-12] MEDS: CHLORHEXIDINE ORAL RINSE 0.12%/15ML 120ML BOTTLE SSP ×3 (08:22→21:25)
[2017-10-12] MEDS: NICOTINE 14 MG/24 HR TRANSDERMAL TD (08:24)
[2017-10-12] MEDS: IBUPROFEN 600 MG TAB PO (08:25)
[2017-10-12] MEDS: PARoxetine 20 MG TAB PO (08:25)
[2017-10-12] MEDS: GABAPENTIN 300 MG CAP PO ×3 (08:26→21:25)
[2017-10-12] MEDS: AUGMENTIN 875 MG TAB PO ×2 (08:26→21:25)
[2017-10-12] MEDS: clonazePAM 1 MG TAB PO ×2 (09:24→19:26)
[2017-10-12] MEDS: diphenhydrAMINE 25 MG CAP PO (15:08)
[2017-10-12] MEDS: TUBERCULIN PPD 5 UNITS/0.1 ML ID (19:27)
[2017-10-13] MEDS: IBUPROFEN 600 MG TAB PO (08:28)
[2017-10-13] MEDS: GABAPENTIN 300 MG CAP PO ×3 (08:29→20:01)
[2017-10-13] MEDS: AUGMENTIN 875 MG TAB PO ×2 (08:29→20:01)
[2017-10-13] MEDS: FLUoxetine 10 MG CAP PO (08:29)
[2017-10-13] MEDS: PARoxetine 20 MG TAB PO (08:30)
[2017-10-13] MEDS: NICOTINE 14 MG/24 HR TRANSDERMAL TD (08:30)
[2017-10-13] MEDS: clonazePAM 1 MG TAB PO ×2 (08:30→15:50)
[2017-10-13] MEDS: CHLORHEXIDINE ORAL RINSE 0.12%/15ML 120ML BOTTLE SSP ×3 (08:31→20:01)
[2017-10-13] MEDS: DOCUSATE SODIUM 100 MG CAP PO ×2 (15:46→20:01)
[2017-10-13] MEDS: diphenhydrAMINE 25 MG CAP PO (16:25)
[2017-10-13] MEDS: traZODone 50 MG TAB PO (20:44)
[2017-10-14] MEDS: DOCUSATE SODIUM 100 MG CAP PO ×2 (08:03→20:16)
[2017-10-14] MEDS: AUGMENTIN 875 MG TAB PO ×2 (08:04→20:16)
[2017-10-14] MEDS: FLUoxetine 10 MG CAP PO (08:04)
[2017-10-14] MEDS: PARoxetine 20 MG TAB PO (08:04)
[2017-10-14] MEDS: CHLORHEXIDINE ORAL RINSE 0.12%/15ML 120ML BOTTLE SSP ×3 (08:04→20:17)
[2017-10-14] MEDS: GABAPENTIN 300 MG CAP PO ×3 (08:04→20:16)
[2017-10-14] MEDS: NICOTINE 14 MG/24 HR TRANSDERMAL TD (08:04)
[2017-10-14] MEDS: clonazePAM 1 MG TAB PO ×2 (08:05→18:07)
[2017-10-14] MEDS: PPD DOCUMENTATION ENTRY MISC XX (15:15)
[2017-10-14] MEDS: traZODone 50 MG TAB PO (20:16)
[2017-10-14] MEDS: MICONAZOLE-7 VAGINAL 2% CREAM 47.7 GM PV (20:19)
[2017-10-15] MEDS: AUGMENTIN 875 MG TAB PO ×2 (08:12→21:00)
[2017-10-15] MEDS: CHLORHEXIDINE ORAL RINSE 0.12%/15ML 120ML BOTTLE SSP ×3 (08:12→21:00)
[2017-10-15] MEDS: FLUoxetine 20 MG CAP PO (08:12)
[2017-10-15] MEDS: PARoxetine 10MG TABLET PO (08:12)
[2017-10-15] MEDS: clonazePAM 1 MG TAB PO ×3 (08:12→22:22)
[2017-10-15] MEDS: NICOTINE 14 MG/24 HR TRANSDERMAL TD (08:12)
[2017-10-15] MEDS: GABAPENTIN 300 MG CAP PO ×3 (08:12→21:00)
[2017-10-15] MEDS: DOCUSATE SODIUM 100 MG CAP PO ×3 (08:15→21:00)
[2017-10-15] MEDS: MICONAZOLE-7 VAGINAL 2% CREAM 47.7 GM PV (21:00)
[2017-10-15] MEDS: traZODone 50 MG TAB PO (21:11)
[2017-10-16] MEDS: CHLORHEXIDINE ORAL RINSE 0.12%/15ML 120ML BOTTLE SSP ×3 (08:00→20:06)
[2017-10-16] MEDS: clonazePAM 1 MG TAB PO ×3 (08:01→20:04)
[2017-10-16] MEDS: NICOTINE 14 MG/24 HR TRANSDERMAL TD (08:01)
[2017-10-16] MEDS: PARoxetine 10MG TABLET PO (08:01)
[2017-10-16] MEDS: FLUoxetine 20 MG CAP PO (08:01)
[2017-10-16] MEDS: GABAPENTIN 300 MG CAP PO ×3 (08:01→20:04)
[2017-10-16] MEDS: DOCUSATE SODIUM 100 MG CAP PO ×2 (08:39→20:06)
[2017-10-16] MEDS: MICONAZOLE-7 VAGINAL 2% CREAM 47.7 GM PV (20:02)
[2017-10-16] MEDS: traZODone 50 MG TAB PO (20:04)
[2017-10-17] MEDS: DOCUSATE SODIUM 100 MG CAP PO ×2 (08:10→20:05)
[2017-10-17] MEDS: FLUoxetine 20 MG CAP PO (08:11)
[2017-10-17] MEDS: CHLORHEXIDINE ORAL RINSE 0.12%/15ML 120ML BOTTLE SSP ×3 (08:12→20:04)
[2017-10-17] MEDS: PARoxetine 10MG TABLET PO (08:12)
[2017-10-17] MEDS: GABAPENTIN 300 MG CAP PO ×3 (08:12→20:05)
[2017-10-17] MEDS: NICOTINE 14 MG/24 HR TRANSDERMAL TD (08:12)
[2017-10-17] MEDS: clonazePAM 1 MG TAB PO ×2 (08:14→20:05)
[2017-10-17] MEDS: diphenhydrAMINE 25 MG CAP PO (11:31)
[2017-10-17] MEDS: MICONAZOLE-7 VAGINAL 2% CREAM 47.7 GM PV (20:04)
[2017-10-17] MEDS: traZODone 50 MG TAB PO (20:05)
[2017-10-17] MEDS: PARoxetine 20 MG TAB PO (20:05)
[2017-10-18] MEDS: DOCUSATE SODIUM 100 MG CAP PO ×2 (09:00→20:08)
[2017-10-18] MEDS: CHLORHEXIDINE ORAL RINSE 0.12%/15ML 120ML BOTTLE SSP ×3 (09:01→21:01)
[2017-10-18] MEDS: PARoxetine 20 MG TAB PO ×2 (09:01→20:07)
[2017-10-18] MEDS: NICOTINE 14 MG/24 HR TRANSDERMAL TD (09:01)
[2017-10-18] MEDS: GABAPENTIN 300 MG CAP PO ×3 (09:01→20:07)
[2017-10-18] MEDS: clonazePAM 1 MG TAB PO ×2 (09:01→17:18)
[2017-10-18] MEDS: diphenhydrAMINE 25 MG CAP PO (12:19)
[2017-10-18] MEDS: risperiDONE 0.5 MG TAB PO ×2 (17:18→20:07)
[2017-10-18] MEDS: traZODone 50 MG TAB PO (21:00)
[2017-10-18] MEDS: MICONAZOLE-7 VAGINAL 2% CREAM 47.7 GM PV (21:03)
[2017-10-19] MEDS: DOCUSATE SODIUM 100 MG CAP PO ×2 (08:08→20:39)
[2017-10-19] MEDS: GABAPENTIN 300 MG CAP PO (08:10)
[2017-10-19] MEDS: risperiDONE 0.5 MG TAB PO ×2 (08:10→13:16)
[2017-10-19] MEDS: PARoxetine 20 MG TAB PO (08:10)
[2017-10-19] MEDS: CHLORHEXIDINE ORAL RINSE 0.12%/15ML 120ML BOTTLE SSP ×3 (08:10→20:39)
[2017-10-19] MEDS: NICOTINE 14 MG/24 HR TRANSDERMAL TD (08:48)
[2017-10-19] MEDS: clonazePAM 1 MG TAB PO ×2 (08:59→20:39)
[2017-10-19] MEDS: FLUTICASONE PROP 0.05% NASAL SPRAY 16 GM (FLONASE) ×2 (09:00→13:16)
[2017-10-19] MEDS: GABAPENTIN 400 MG CAP PO ×2 (16:52→20:39)
[2017-10-19] MEDS: traZODone 50 MG TAB PO (20:39)
[2017-10-19] MEDS: MICONAZOLE-7 VAGINAL 2% CREAM 47.7 GM PV (20:40)
[2017-10-20] MEDS: GABAPENTIN 400 MG CAP PO ×4 (08:02→20:07)
[2017-10-20] MEDS: NICOTINE 14 MG/24 HR TRANSDERMAL TD (08:02)
[2017-10-20] MEDS: PARoxetine 20 MG TAB PO (08:02)
[2017-10-20] MEDS: FLUTICASONE PROP 0.05% NASAL SPRAY 16 GM (FLONASE) (08:03)
[2017-10-20] MEDS: CHLORHEXIDINE ORAL RINSE 0.12%/15ML 120ML BOTTLE SSP ×3 (08:03→20:07)
[2017-10-20] MEDS: DOCUSATE SODIUM 100 MG CAP PO ×2 (08:04→20:09)
[2017-10-20] MEDS: clonazePAM 1 MG TAB PO ×2 (09:05→20:07)
[2017-10-20] MEDS: MICONAZOLE-7 VAGINAL 2% CREAM 47.7 GM PV (20:09)
[2017-10-20] MEDS: traZODone 50 MG TAB PO (21:58)
[2017-10-21] MEDS: DOCUSATE SODIUM 100 MG CAP PO (08:14)
[2017-10-21] MEDS: NICOTINE 14 MG/24 HR TRANSDERMAL TD (08:15)
[2017-10-21] MEDS: PARoxetine 20 MG TAB PO (08:16)
[2017-10-21] MEDS: FLUTICASONE PROP 0.05% NASAL SPRAY 16 GM (FLONASE) (08:17)
[2017-10-21] MEDS: CHLORHEXIDINE ORAL RINSE 0.12%/15ML 120ML BOTTLE SSP (08:17)
[2017-10-21] MEDS: GABAPENTIN 400 MG CAP PO (08:17)
[2017-10-21] MEDS: clonazePAM 1 MG TAB PO (09:02)
== END 2017-10-21 10:20 | disposition home or self-care (01) | DRG 885 ==
LOC: M PSY 10-05 15:06 → M ED 15:02 → M ED INP 18:15 → M PSY 20:30
DX: F33.9 Major depressive disorder, recurrent, unspecified (principal); R45.851 Suicidal ideations; F41.0 Panic disorder [episodic paroxysmal anxiety]; M79.7 Fibromyalgia; F43.10 Post-traumatic stress disorder, unspecified; F41.1 Generalized anxiety disorder; Z62.810 Personal history of physical and sexual abuse in childhood; K04.7 Periapical abscess without sinus; B37.3 Candidiasis of vulva and vagina

== ENCOUNTER 2017-10-24 20:11 | Inpatient (IN) | payer MEDICAID ==
[2017-10-24 22:32] LABS: HEMATOCRIT 38.5 % (36.0-47.0); HEMOGLOBIN 12.7 g/dl (12.0-15.5); MEAN CORPUSCULAR HEMOGLOBIN 27.5 pg (27.0-33.0); MEAN CORPUSCULAR VOLUME 83.3 fl (80.0-96.0); PLATELET COUNT, AUTOMATED 231 10^3/uL (150-450); RED BLOOD COUNT 4.62 10^6/uL (4.00-5.40); RED CELL DISTRIBUTION WIDTH 13.3 % (11.5-14.5); WHITE BLOOD COUNT 7.5 10^3/uL (4.0-10.0)
[2017-10-24 22:59] LABS: AMPHETAMINES LEVEL URINE NEGATIVE (NEGATIVE); BARBITURATES URINE NEGATIVE (NEGATIVE); BENZODIAZEPINES URINE NEGATIVE (NEGATIVE); CANNABINOIDS URINE POSITIVE (NEGATIVE); COCAINE METABOLITE URINE NEGATIVE (NEGATIVE); METHADONE URINE NEGATIVE (NEGATIVE); OPIATES URINE NEGATIVE (NEGATIVE); PHENCYCLIDINE URINE NEGATIVE (NEGATIVE)
[2017-10-24 23:05] LABS: CONTROL LINE HCG INT CTR LINE PRESENT; HCG, SERUM QUALITATIVE NEGATIVE (NEGATIVE)
[2017-10-24 23:10] LABS: ACETAMINOPHEN LEVEL < 2.0 UG/ML (10.0-30.0); ALBUMIN 3.6 GM/DL (3.2-5.2); ALKALINE PHOSPHATASE 65 U/L (45-117); ALT/SGPT 21 U/L (12-78); ANION GAP 8 MEQ/L (8-16); AST/SGOT 14 U/L (7-37); BILIRUBIN,DIRECT 0.1 MG/DL (0.0-0.2); BILIRUBIN,TOTAL 0.3 MG/DL (0.2-1.0); BLOOD UREA NITROGEN 10 MG/DL (7-18); CALCIUM LEVEL 8.2 MG/DL (8.5-10.1); CARBON DIOXIDE LEVEL 25 MEQ/L (21-32); CHLORIDE LEVEL 108 MEQ/L (98-107); CREATININE FOR GFR 1.01 MG/DL (0.55-1.30); ETHYL ALCOHOL (ETHANOL) < 0.003 % (0.000-0.010); GLOMERULAR FILTRATION RATE > 60.0 (>60); GLUCOSE, FASTING 81 MG/DL (70-100); POTASSIUM SERUM 4.2 MEQ/L (3.5-5.1); SALICYLATE LEVEL 1.8 MG/DL (5.0-30.0); SODIUM LEVEL 141 MEQ/L (136-145); THYROID STIMULATING HORMONE 0.535 uIU/ML (0.358-3.740); TOTAL PROTEIN 6.6 GM/DL (6.4-8.2)
[2017-10-25] MEDS ORDERED: clonazePAM 1 MG TAB PO ×2 (08:15)
[2017-10-25] MEDS ORDERED: GABAPENTIN 400 MG CAP PO ×2 (08:15)
[2017-10-25] MEDS ORDERED: PARoxetine 20 MG TAB PO ×2 (08:15)
[2017-10-25] MEDS: clonazePAM 1 MG TAB PO ×2 (09:27)
[2017-10-25] MEDS: GABAPENTIN 400 MG CAP PO ×2 (09:28)
[2017-10-25] MEDS: PARoxetine 20 MG TAB PO ×2 (09:28)
[2017-10-25] MEDS: NICOTINE 21MG/24HR 1 EA TRANSDERMAL TD ×2 (09:45)
[2017-10-26] MEDS ORDERED: PARoxetine 20 MG TAB PO ×2 (09:00)
== END 2017-10-25 15:27 | disposition home or self-care (01) | DRG 885 ==
LOC: M ED INP 10-25 00:17 → M ED 10-25 15:26
DX: F33.0 Major depressive disorder, recurrent, mild (principal); F41.0 Panic disorder [episodic paroxysmal anxiety]; F41.1 Generalized anxiety disorder; F60.3 Borderline personality disorder; F43.10 Post-traumatic stress disorder, unspecified; M79.7 Fibromyalgia
CPT/HCPCS: 80320

== ENCOUNTER 2017-10-26 03:31 | Emergency (ER) | payer OTHER, MEDICAID ==
[2017-10-26 04:51] LABS: HEMATOCRIT 40.8 % (36.0-47.0); HEMOGLOBIN 13.6 g/dl (12.0-15.5); MEAN CORPUSCULAR HEMOGLOBIN 27.8 pg (27.0-33.0); MEAN CORPUSCULAR HGB CONC 33.3 g/dl (32.0-36.5); MEAN CORPUSCULAR VOLUME 83.3 fl (80.0-96.0); PLATELET COUNT, AUTOMATED 232 10^3/uL (150-450); RED CELL DISTRIBUTION WIDTH 13.3 % (11.5-14.5); WHITE BLOOD COUNT 8.3 10^3/uL (4.0-10.0)
[2017-10-26 05:15] LABS: AMPHETAMINES LEVEL URINE NEGATIVE (NEGATIVE); BARBITURATES URINE NEGATIVE (NEGATIVE); BENZODIAZEPINES URINE NEGATIVE (NEGATIVE); CANNABINOIDS URINE NEGATIVE (NEGATIVE); COCAINE METABOLITE URINE NEGATIVE (NEGATIVE); METHADONE URINE NEGATIVE (NEGATIVE); OPIATES URINE NEGATIVE (NEGATIVE); PHENCYCLIDINE URINE NEGATIVE (NEGATIVE)
[2017-10-26 05:24] LABS: ALBUMIN/GLOBULIN RATIO 1.14 (1.00-1.93); ALKALINE PHOSPHATASE 74 U/L (45-117); ALT/SGPT 25 U/L (12-78); ANION GAP 11 MEQ/L (8-16); AST/SGOT 21 U/L (7-37); BILIRUBIN,DIRECT 0.1 MG/DL (0.0-0.2); BILIRUBIN,TOTAL 0.4 MG/DL (0.2-1.0); BLOOD UREA NITROGEN 8 MG/DL (7-18); CALCIUM LEVEL 8.6 MG/DL (8.5-10.1); CARBON DIOXIDE LEVEL 22 MEQ/L (21-32); CHLORIDE LEVEL 109 MEQ/L (98-107); CREATININE FOR GFR 1.04 MG/DL (0.55-1.30); ETHYL ALCOHOL (ETHANOL) 0.135 % (0.000-0.010); GLOMERULAR FILTRATION RATE > 60.0 (>60); GLUCOSE, FASTING 86 MG/DL (70-100); POTASSIUM SERUM 3.9 MEQ/L (3.5-5.1); SALICYLATE LEVEL 2.3 MG/DL (5.0-30.0); SODIUM LEVEL 142 MEQ/L (136-145); THYROID STIMULATING HORMONE 0.894 uIU/ML (0.358-3.740); TOTAL PROTEIN 7.5 GM/DL (6.4-8.2)
[2017-10-26 05:39] LABS: ACETAMINOPHEN LEVEL < 2.0 UG/ML (10.0-30.0)
[2017-10-26] MEDS: PARoxetine 20 MG TAB PO (11:49)
[2017-10-26] MEDS: GABAPENTIN 400 MG CAP PO (11:49)
[2017-10-26] MEDS: clonazePAM 1 MG TAB PO (11:49)
== END 2017-10-26 14:01 | disposition home or self-care (01) ==
LOC: M ED 03:31
DX: F32.9 Major depressive disorder, single episode, unspecified (principal); S50.819A Abrasion of unspecified forearm, initial encounter; S92.514A Nondisplaced fracture of proximal phalanx of right lesser toe(s), initial encounter for closed fracture; Y04.8XXA Assault by other bodily force, initial encounter; Y92.410 Unspecified street and highway as the place of occurrence of the external cause; Y93.9 Activity, unspecified; Y99.9 Unspecified external cause status; Z72.0 Tobacco use
CPT/HCPCS: 70160

== ENCOUNTER 2017-11-19 19:18 | Emergency (ER) | payer OTHER ==
[2017-11-19] MEDS: GABAPENTIN 400 MG CAP PO (21:03)
[2017-11-19 21:06] LABS: CONTROL LINE HCG INT CTR LINE PRESENT; HCG, SERUM QUALITATIVE NEGATIVE (NEGATIVE)
[2017-11-19 21:11] LABS: HEMATOCRIT 39.5 % (36.0-47.0); HEMOGLOBIN 12.5 g/dl (12.0-15.5); MEAN CORPUSCULAR HEMOGLOBIN 27.7 pg (27.0-33.0); MEAN CORPUSCULAR HGB CONC 31.6 g/dl (32.0-36.5); MEAN CORPUSCULAR VOLUME 87.4 fl (80.0-96.0); PLATELET COUNT, AUTOMATED 242 10^3/uL (150-450); RED BLOOD COUNT 4.52 10^6/uL (4.00-5.40); RED CELL DISTRIBUTION WIDTH 14.9 % (11.5-14.5); WHITE BLOOD COUNT 8.2 10^3/uL (4.0-10.0)
[2017-11-19 21:13] LABS: AMPHETAMINES LEVEL URINE NEGATIVE (NEGATIVE); BARBITURATES URINE NEGATIVE (NEGATIVE); BENZODIAZEPINES URINE NEGATIVE (NEGATIVE); CANNABINOIDS URINE NEGATIVE (NEGATIVE); COCAINE METABOLITE URINE NEGATIVE (NEGATIVE); METHADONE URINE NEGATIVE (NEGATIVE); OPIATES URINE NEGATIVE (NEGATIVE); PHENCYCLIDINE URINE NEGATIVE (NEGATIVE)
[2017-11-19 21:20] LABS: ALT/SGPT 17 U/L (12-78); ANION GAP 7 MEQ/L (8-16); AST/SGOT 12 U/L (7-37); BLOOD UREA NITROGEN 18 MG/DL (7-18); CALCIUM LEVEL 8.7 MG/DL (8.5-10.1); CARBON DIOXIDE LEVEL 25 MEQ/L (21-32); CHLORIDE LEVEL 109 MEQ/L (98-107); CREATININE FOR GFR 0.77 MG/DL (0.55-1.30); GLOMERULAR FILTRATION RATE > 60.0 (>60); GLUCOSE, FASTING 85 MG/DL (70-100); POTASSIUM SERUM 4.1 MEQ/L (3.5-5.1); SODIUM LEVEL 141 MEQ/L (136-145)
[2017-11-19 21:21] LABS: ALBUMIN 3.6 GM/DL (3.2-5.2); ALBUMIN/GLOBULIN RATIO 1.06 (1.00-1.93); ALKALINE PHOSPHATASE 88 U/L (45-117); BILIRUBIN,DIRECT < 0.1 MG/DL (0.0-0.2); BILIRUBIN,TOTAL 0.2 MG/DL (0.2-1.0); SALICYLATE LEVEL 3.2 MG/DL (5.0-30.0)
[2017-11-19 21:35] LABS: ACETAMINOPHEN LEVEL < 2.0 UG/ML (10.0-30.0); ETHYL ALCOHOL (ETHANOL) < 0.003 % (0.000-0.010)
== END 2017-11-19 22:34 | disposition home or self-care (01) ==
LOC: M ED 19:18
DX: R41.82 Altered mental status, unspecified (principal); F41.0 Panic disorder [episodic paroxysmal anxiety]; F33.9 Major depressive disorder, recurrent, unspecified; F17.200 Nicotine dependence, unspecified, uncomplicated; Z79.899 Other long term (current) drug therapy
CPT/HCPCS: 80320

== ENCOUNTER 2017-12-27 05:44 | Emergency (ER) | payer OTHER ==
[2017-12-27 06:15] LABS: KETONE, URINE AUTO RFX NEGATIVE (NEGATIVE); NITRITE, URINE AUTO RFX NEGATIVE (NEGATIVE); RBC, URINE AUTO RFX 3 /HPF (0-3); SPECIFIC GRAVITY UR AUTO RFX 1.021 (1.002-1.035); SQUAM EPITHELIAL CELL UR AURFX 23 /HPF (0-6)
[2017-12-27 06:24] LABS: LEUKOCYTE ESTERASE UR AUTO RFX 3+ (NEGATIVE); WBC, URINE AUTO RFX 106 /HPF (0-3)
[2017-12-27] MEDS: NS 1,000 ML IV (06:32)
[2017-12-27 06:40] LABS: BASO % 0.4 % (0.0-1.0); EOS # 0.1 10^3/uL (0.0-0.50); EOS % 1.6 % (0.0-3.0); HEMATOCRIT 36.3 % (36.0-47.0); IMMATURE GRANULOCYTE % 0.4 % (0-3.0); LYMPH # 2.3 10^3/uL (1.5-6.5); LYMPH % 27.4 % (24.0-44.0); MEAN CORPUSCULAR HGB CONC 33.1 g/dl (32.0-36.5); MEAN CORPUSCULAR VOLUME 87.7 fl (80.0-96.0); MONO # 0.5 10^3/uL (0.0-0.8); MONO % 6.2 % (0.0-5.0); NEUTROPHILS # 5.3 10^3/uL (1.8-7.7); PLATELET COUNT, AUTOMATED 199 10^3/uL (150-450); RED BLOOD COUNT 4.14 10^6/uL (4.00-5.40); RED CELL DISTRIBUTION WIDTH 13.2 % (11.5-14.5); WHITE BLOOD COUNT 8.2 10^3/uL (4.0-10.0)
[2017-12-27 07:20] LABS: HCG, SERUM QUANTITATIVE 156472 MIU/ML
== END 2017-12-27 08:47 | disposition home or self-care (01) ==
LOC: M ED 05:44
DX: O23.11 Infections of bladder in pregnancy, first trimester (principal); O30.041 Twin pregnancy, dichorionic/diamniotic, first trimester; Z3A.09 9 weeks gestation of pregnancy; O99.511 Diseases of the respiratory system complicating pregnancy, first trimester; J45.909 Unspecified asthma, uncomplicated; O99.341 Other mental disorders complicating pregnancy, first trimester; F31.9 Bipolar disorder, unspecified; F41.9 Anxiety disorder, unspecified; O26.891 Other specified pregnancy related conditions, first trimester; M54.9 Dorsalgia, unspecified; O99.331 Smoking (tobacco) complicating pregnancy, first trimester; F17.210 Nicotine dependence, cigarettes, uncomplicated
CPT/HCPCS: 76801

== ENCOUNTER 2018-01-04 09:15 | Emergency (ER) | payer OTHER ==
[2018-01-04 11:11] LABS: BASO % 0.5 % (0.0-1.0); EOS # 0.1 10^3/uL (0.0-0.50); EOS % 1.2 % (0.0-3.0); HEMATOCRIT 33.7 % (36.0-47.0); HEMOGLOBIN 11.4 g/dl (12.0-15.5); IMMATURE GRANULOCYTE % 0.4 % (0-3.0); LYMPH # 1.7 10^3/uL (1.5-6.5); LYMPH % 21.3 % (24.0-44.0); MEAN CORPUSCULAR HEMOGLOBIN 28.8 pg (27.0-33.0); MEAN CORPUSCULAR HGB CONC 33.8 g/dl (32.0-36.5); MEAN CORPUSCULAR VOLUME 85.1 fl (80.0-96.0); MONO # 0.5 10^3/uL (0.0-0.8); MONO % 6.3 % (0.0-5.0); NEUTROPHILS # 5.5 10^3/uL (1.8-7.7); NEUTROPHILS % 70.3 % (36.0-66.0); PLATELET COUNT, AUTOMATED 215 10^3/uL (150-450); RED BLOOD COUNT 3.96 10^6/uL (4.00-5.40); RED CELL DISTRIBUTION WIDTH 12.9 % (11.5-14.5); WHITE BLOOD COUNT 7.8 10^3/uL (4.0-10.0)
[2018-01-04] MEDS: NS 1,000 ML IV (11:15)
[2018-01-04 11:24] LABS: KETONE, URINE AUTO RFX NEGATIVE (NEGATIVE); MUCUS, URINE RFX SMALL (NEGATIVE); NITRITE, URINE AUTO RFX NEGATIVE (NEGATIVE); RBC, URINE AUTO RFX 2 /HPF (0-3); SPECIFIC GRAVITY UR AUTO RFX 1.023 (1.002-1.035); SQUAM EPITHELIAL CELL UR AURFX 21 /HPF (0-6); WBC, URINE AUTO RFX 2 /HPF (0-3)
[2018-01-04 11:25] LABS: LEUKOCYTE ESTERASE UR AUTO RFX 2+ (NEGATIVE)
[2018-01-04 11:55] LABS: HCG, SERUM QUANTITATIVE 175397 MIU/ML
== END 2018-01-04 14:06 | disposition home or self-care (01) ==
LOC: M ED 09:15
DX: O30.041 Twin pregnancy, dichorionic/diamniotic, first trimester (principal); O26.891 Other specified pregnancy related conditions, first trimester; Z3A.09 9 weeks gestation of pregnancy; O99.341 Other mental disorders complicating pregnancy, first trimester
CPT/HCPCS: 76801

== ENCOUNTER 2018-02-28 19:29 | Emergency (ER) | payer OTHER | END 2018-02-28 21:04 | disposition home or self-care (01) | LOC: M ED 19:29 | DX: F32.9 Major depressive disorder, single episode, unspecified (principal); R45.1 Restlessness and agitation; Z87.59 Personal history of other complications of pregnancy, childbirth and the puerperium; Z72.0 Tobacco use; Z12.10 Encounter for screening for malignant neoplasm of intestinal tract, unspecified; Z79.899 Other long term (current) drug therapy | CPT/HCPCS: 99284 ==

== ENCOUNTER 2018-03-23 18:26 | Emergency (ER) | payer OTHER ==
[~2018-03-23] VITALS: Ht 157.5 cm; Wt 63.4 kg
[~2018-03-23 18:26] MED LIST changes: +ABIL10TA9 PO; +ACET500T15 PO; -ACET50TA PO; +ARIP5TA PO; +CLEO300C2 PO; +CLON0.5T8 PO; +CLON1TAB8 PO; +DEBL1TAB PO; +DIPH50CA PO; +EFFE75CA2 PO; +GABA-1171 PO; +GABA-845 PO; +HYDR50TA70 PO; +KLON0.5T PO; +LEVOTAB18 PO; +MACR100C43 PO; +MAPA500T2 PO; +NAPR-50 PO; -NAPR500T PO; +NEUR400C PO; +PARO20TA3 PO; +PARO40TA2 PO; +PAXI40TA10 PO; -PEPC1TAB4 PO; +PEPC1TAB5 PO; +PERC5TAB12 PO; +QUET5TAB PO; +SERO50TA; +SERT-138 PO; +TRAZ-163 PO; +TRAZ10TA PO; +ZYPR10TA PO; +ZYPR5TAB2 PO
[2018-03-23] MEDS ORDERED: KETOROLAC TROMETHAMINE 10 MG TAB PO ONE (19:00)
[2018-03-23] MEDS ORDERED: SKEL800T97 PO (19:41)
[2018-03-23] MEDS ORDERED: PRED20TA PO (19:41)
[2018-03-23 19:48] VITALS: BP 105/65
--- NOTE | 2018-03-23 19:48 | REP ---
THORACIC SPINE: Three AP and lateral views of the thoracic spine are performed. There is no compression fracture or malalignment. There is normal thoracic kyphosis. Disc spaces are well preserved. Posterior elements are intact. IMPRESSION: No fracture or dislocation. Electronically Signed by Jl Green MD 03/23/2018 08:30 P
--- NOTE | 2018-03-23 19:49 | REP ---
RIGHT WRIST, FOUR VIEWS: There is no evidence of an acute fracture, dislocation or intrinsic bone disease. IMPRESSION: No fracture or dislocation. Electronically Signed by Jl Green MD 03/23/2018 08:30 P
--- NOTE | 2018-03-23 19:50 | REP ---
CERVICAL SPINE: Five views of the lumbosacral spine are performed. There is no fracture or dislocation with normal lumbar lordosis and alignment. Disc spaces are well preserved. Posterior elements are intact. IMPRESSION: No fracture or dislocation. Electronically Signed by Jl Green MD 03/23/2018 08:30 P
== END 2018-03-23 19:49 | disposition home or self-care (01) ==
LOC: M ED 18:26
DX: M77.8 Other enthesopathies, not elsewhere classified (principal); M54.5 Low back pain; J45.909 Unspecified asthma, uncomplicated; F41.9 Anxiety disorder, unspecified; F41.0 Panic disorder [episodic paroxysmal anxiety]; F32.9 Major depressive disorder, single episode, unspecified; F31.9 Bipolar disorder, unspecified; Z72.0 Tobacco use

== ENCOUNTER 2018-03-25 14:11 | Emergency (ER) | payer OTHER ==
[~2018-03-25] VITALS: Ht 157.5 cm; Wt 61.8 kg
[~2018-03-25 14:11] MED LIST changes: +PRED20TA PO; +SKEL800T97 PO
[2018-03-25 14:12] VITALS: BP 137/81
[2018-03-25] MEDS ORDERED: EXCETAB81 PO (14:17)
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
== END 2018-03-25 15:30 | disposition home or self-care (01) ==
LOC: M ED 14:11
DX: S09.90XA Unspecified injury of head, initial encounter (principal); Y04.8XXA Assault by other bodily force, initial encounter; Y92.098 Other place in other non-institutional residence as the place of occurrence of the external cause; F17.210 Nicotine dependence, cigarettes, uncomplicated; Z79.899 Other long term (current) drug therapy

== ENCOUNTER 2018-03-30 13:39 | Emergency (ER) | payer OTHER ==
[~2018-03-30] VITALS: Ht 157.5 cm; Wt 61.8 kg
[~2018-03-30 13:39] MED LIST changes: +EXCETAB81 PO
[2018-03-30 14:13] LABS: HEMATOCRIT 36.8 % (36.0-47.0); HEMOGLOBIN 12.1 g/dl (12.0-15.5); MEAN CORPUSCULAR HEMOGLOBIN 27.9 pg (27.0-33.0); MEAN CORPUSCULAR HGB CONC 32.9 g/dl (32.0-36.5); PLATELET COUNT, AUTOMATED 224 10^3/uL (150-450); RED BLOOD COUNT 4.33 10^6/uL (4.00-5.40); WHITE BLOOD COUNT 5.6 10^3/uL (4.0-10.0)
[2018-03-30 14:50] LABS: AMPHETAMINES LEVEL URINE NEGATIVE (NEGATIVE); BARBITURATES URINE NEGATIVE (NEGATIVE); BENZODIAZEPINES URINE NEGATIVE (NEGATIVE); CANNABINOIDS URINE NEGATIVE (NEGATIVE); COCAINE METABOLITE URINE NEGATIVE (NEGATIVE); METHADONE URINE NEGATIVE (NEGATIVE); OPIATES URINE NEGATIVE (NEGATIVE); PHENCYCLIDINE URINE NEGATIVE (NEGATIVE)
[2018-03-30] MEDS ORDERED: PAXI40TA10 PO (14:53)
[2018-03-30] MEDS ORDERED: GABA-845 PO (14:54)
[2018-03-30 14:55] LABS: HCG, SERUM QUALITATIVE NEGATIVE (NEGATIVE)
[2018-03-30 14:56] LABS: ACETAMINOPHEN LEVEL < 2.0 UG/ML (10.0-30.0); ALBUMIN 3.6 GM/DL (3.2-5.2); ALT/SGPT 17 U/L (12-78); BILIRUBIN,DIRECT < 0.1 MG/DL (0.0-0.2); BILIRUBIN,TOTAL 0.2 MG/DL (0.2-1.0); BLOOD UREA NITROGEN 12 MG/DL (7-18); CALCIUM LEVEL 8.3 MG/DL (8.5-10.1); CARBON DIOXIDE LEVEL 24 MEQ/L (21-32); CHLORIDE LEVEL 109 MEQ/L (98-107); ETHYL ALCOHOL (ETHANOL) < 0.003 % (0.000-0.010); GLOMERULAR FILTRATION RATE > 60.0 (>60); GLUCOSE, FASTING 94 MG/DL (70-100); POTASSIUM SERUM 3.8 MEQ/L (3.5-5.1); SALICYLATE LEVEL 2.5 MG/DL (5.0-30.0); SODIUM LEVEL 140 MEQ/L (136-145); TOTAL PROTEIN 6.7 GM/DL (6.4-8.2)
[2018-03-30 15:28] VITALS: BP 133/81
== END 2018-03-30 15:29 | disposition home or self-care (01) ==
LOC: M ED 13:39
DX: F41.9 Anxiety disorder, unspecified (principal); F32.9 Major depressive disorder, single episode, unspecified; Z91.5 Personal history of self-harm; Z72.0 Tobacco use; Z79.899 Other long term (current) drug therapy
CPT/HCPCS: 80048; 80076; 80307; 84443; 84703; 85027; 99284; G0480

== ENCOUNTER 2018-05-04 20:36 | Emergency (ER) | payer OTHER ==
[~2018-05-04] VITALS: Ht 157.5 cm; Wt 68.2 kg
[2018-05-04 20:36] VITALS: BP 158/99
== END 2018-05-04 21:46 | disposition home or self-care (01) ==
LOC: M ED 20:36
DX: Z76.0 Encounter for issue of repeat prescription (principal); Z72.89 Other problems related to lifestyle; J45.909 Unspecified asthma, uncomplicated; F41.9 Anxiety disorder, unspecified; F32.9 Major depressive disorder, single episode, unspecified; F31.81 Bipolar II disorder

== ENCOUNTER → 2018-05-08 | Outpatient (REF) | payer OTHER ==
[2018-05-08 19:39] LABS: CHLAMYDIA DNA AMPLIFICATION NEGATIVE (NEGATIVE); GC DNA AMPLIFICATION NEGATIVE (NEGATIVE)
== END ==
LOC: M LAB REF 16:56
PROVIDERS: ATTEND Physician Assistant
DX: N76.0 Acute vaginitis (principal)

== ENCOUNTER → 2018-06-28 | Outpatient (CLI) | payer OTHER ==
[~2018-06-28] MED LIST changes: +ARIP1TAB6 PO; -ARIP5TA PO; -NAPR-50 PO; +NAPR-837 PO
--- NOTE | 2018-06-28 18:17 | REP ---
First trimester obstetric sonography: History: Supervision of . Findings: Transabdominal scanning demonstrates a living single intrauterine gestation. The crown-rump length of the embryonic pole measures 25 mm. This corresponds with a gestational age estimate of 9 weeks 1 day. heart rate is recorded at 165 beats per minute. There is a 1.6 cm hemorrhagic corpus luteum cyst in the right ovary. No subchorionic hemorrhage is appreciated. Impression: Viable single intrauterine gestation at 9 weeks 1 day by crown-rump length. PARMINDER by sonography January 30, 2019. Electronically Signed by Brian Sher MD 06/28/2018 08:33 P
== END ==
LOC: M RAD 15:12
PROVIDERS: ATTEND Nurse Practitioner Family
DX: Z32.01 Encounter for pregnancy test, result positive (principal); Z3A.09 9 weeks gestation of pregnancy

== ENCOUNTER 2018-09-03 14:57 | Emergency (ER) | payer OTHER ==
[~2018-09-03] VITALS: Ht 157.5 cm; Wt 65.9 kg
[2018-09-03] MEDS ORDERED: NAPR500T6 PO (16:55)
[2018-09-03] MEDS ORDERED: CYCL10TA PO (16:56)
[2018-09-03 17:07] VITALS: BP 130/77
== END 2018-09-03 17:12 | disposition home or self-care (01) ==
LOC: M ED 14:57
DX: M26.629 Arthralgia of temporomandibular joint, unspecified side (principal); J45.909 Unspecified asthma, uncomplicated; F41.9 Anxiety disorder, unspecified; M54.9 Dorsalgia, unspecified

== ENCOUNTER 2019-10-08 13:46 | Emergency (ER) | payer OTHER ==
[~2019-10-08 13:46] MED LIST changes: +CLON0.5T2 PO; -CLON0.5T8 PO; +CYCL-707 PO; -CYCL10TA PO; +NAPR500T6 PO; -TRAZ-163 PO; +TRAZ-257 PO; -TRAZ10TA PO; +TRAZ1TAB12 PO
[2019-10-08] MEDS ORDERED: diphenhydrAMINE 50MG/ML VIAL (J1200) ONE (14:29)
[2019-10-08] MEDS ORDERED: FAMOTIDINE/NS 20 MG/50 ML BAG (S0028) ONE (14:29)
[2019-11-11 14:11] LABS: HEMATOCRIT 37.5 % (36.0-47.0); HEMOGLOBIN 12.3 g/dl (12.0-15.5); MEAN CORPUSCULAR HEMOGLOBIN 28.9 pg (27.0-33.0); MEAN CORPUSCULAR HGB CONC 32.8 g/dl (32.0-36.5); MEAN CORPUSCULAR VOLUME 88.2 fl (80.0-96.0); PLATELET COUNT, AUTOMATED 197 10^3/uL (150-450); RED BLOOD COUNT 4.25 10^6/uL (4.00-5.40); WHITE BLOOD COUNT 7.3 10^3/uL (4.0-10.0)
[2019-12-22 14:09] LABS: BLOOD UREA NITROGEN 13 MG/DL (7-18); CALCIUM LEVEL 8.4 MG/DL (8.5-10.1); CARBON DIOXIDE LEVEL 24 MEQ/L (21-32); CHLORIDE LEVEL 110 MEQ/L (98-107); CREATININE FOR GFR 0.89 MG/DL (0.55-1.30); GLOMERULAR FILTRATION RATE > 60.0 (>60); GLUCOSE, FASTING 88 MG/DL (70-100); POTASSIUM SERUM 3.9 MEQ/L (3.5-5.1); SODIUM LEVEL 141 MEQ/L (136-145)
== END 2019-10-08 16:00 | disposition home or self-care (01) ==
LOC: M ED 13:46
DX: L25.9 Unspecified contact dermatitis, unspecified cause (principal); S40.869A Insect bite (nonvenomous) of unspecified upper arm, initial encounter; S81.859A Open bite, unspecified lower leg, initial encounter; W57.XXXA Bitten or stung by nonvenomous insect and other nonvenomous arthropods, initial encounter; Y92.89 Other specified places as the place of occurrence of the external cause; F41.9 Anxiety disorder, unspecified; Z79.899 Other long term (current) drug therapy
CPT/HCPCS: 80048; 85027; 96374; 96375; 99283; J1200

== ENCOUNTER 2020-03-16 20:11 | Emergency (ER) | payer OTHER ==
[~2020-03-16] VITALS: Ht 157.5 cm; Wt 62.9 kg
[2020-03-16 20:43] LABS: HEMATOCRIT 38.1 % (36.0-47.0); HEMOGLOBIN 12.2 g/dl (12.0-15.5); MEAN CORPUSCULAR HEMOGLOBIN 27.9 pg (27.0-33.0); MEAN CORPUSCULAR VOLUME 87.2 fl (80.0-96.0); PLATELET COUNT, AUTOMATED 225 10^3/uL (150-450); RED BLOOD COUNT 4.37 10^6/uL (4.00-5.40); WHITE BLOOD COUNT 7.6 10^3/uL (4.0-10.0)
[2020-03-16 21:06] LABS: HCG, SERUM QUALITATIVE NEGATIVE (NEGATIVE)
[2020-03-16 21:21] LABS: ACETAMINOPHEN LEVEL < 2.0 UG/ML (10.0-30.0); ALBUMIN 4.2 GM/DL (3.2-5.2); ALT/SGPT 15 U/L (12-78); BILIRUBIN,DIRECT 0.1 MG/DL (0.0-0.2); BILIRUBIN,TOTAL 0.2 MG/DL (0.2-1.0); BLOOD UREA NITROGEN 11 MG/DL (7-18); CALCIUM LEVEL 8.4 MG/DL (8.5-10.1); CARBON DIOXIDE LEVEL 24 MEQ/L (21-32); CHLORIDE LEVEL 110 MEQ/L (98-107); CREATININE FOR GFR 0.88 MG/DL (0.55-1.30); ETHYL ALCOHOL (ETHANOL) < 0.003 % (0.000-0.010); GLOMERULAR FILTRATION RATE > 60.0 (>60); GLUCOSE, FASTING 96 MG/DL (70-100); POTASSIUM SERUM 3.5 MEQ/L (3.5-5.1); SALICYLATE LEVEL 2.2 MG/DL (5.0-30.0); SODIUM LEVEL 140 MEQ/L (136-145); THYROID STIMULATING HORMONE 0.816 uIU/ML (0.358-3.740); TOTAL PROTEIN 7.2 GM/DL (6.4-8.2)
[2020-03-16 21:50] LABS: AMPHETAMINES LEVEL URINE NEGATIVE (NEGATIVE); BARBITURATES URINE NEGATIVE (NEGATIVE); BENZODIAZEPINES URINE NEGATIVE (NEGATIVE); CANNABINOIDS URINE POSITIVE (NEGATIVE); COCAINE METABOLITE URINE NEGATIVE (NEGATIVE); METHADONE URINE NEGATIVE (NEGATIVE); OPIATES URINE NEGATIVE (NEGATIVE); PHENCYCLIDINE URINE NEGATIVE (NEGATIVE)
[2020-03-16] MEDS ORDERED: diphenhydrAMINE 25MG CAP PO ONE (23:30)
[2020-03-17 14:36] LABS: RSV AMPLIFICATION NEGATIVE (NEGATIVE)
[2020-03-18 00:15] VITALS: BP 117/65
--- NOTE | 2020-03-18 06:34 | ECGEPIP ---
[facility] - ED Test Date: 2020-03-17 Pat Name: GEORGE DAWN Department: Room: - Gender: Female Draw End Hand: LIV : 1995 Requested By: JOSE ALFREDO Castillo Order Number: [id number] Reading MD: Juan Carlos Baez Measurements Intervals [place] Rate: 64 P: -1 IL: 150 QRS: 31 QRSD: 81 T: 55 QT: 390 QTc: 403 Interpretive Statements SINUS RHYTHM WITH SINUS ARRHYTHMIA NONSPECIFIC ST T WAVE CHANGES 01/24/[address] T WAVE CHANGES Electronically Signed on 03-18-2020 6:34:38 EST by Juan Carlos Baez
== END 2020-03-18 00:18 ==
LOC: M ED 20:11
DX: R45.851 Suicidal ideations (principal); F33.9 Major depressive disorder, recurrent, unspecified; F17.200 Nicotine dependence, unspecified, uncomplicated
CPT/HCPCS: 36415; 80048; 80076; 80307; 84443; 84703; 85027; 87631; 93005; 99284; G0480

== ENCOUNTER → 2022-09-27 | Outpatient (REF) ==
[~2022-09-27] MED LIST changes: +GABA-284 PO; -GABA-845 PO; -PAXI40TA10 PO; +PAXI40TA12 PO; +QUET50TA4 PO; -QUET5TAB PO
== END ==
LOC: M LAB REF 09:49
PROVIDERS: ATTEND Obstetrics & Gynecology Obstetrics
DX: Z36.9 Encounter for antenatal screening, unspecified (principal)

== ENCOUNTER → 2024-09-19 | Outpatient (REF) | payer OTHER ==
[~2024-09-19] MED LIST changes: +BRIN10TA4 PO; -KLON0.5T PO; +KLON0.5T8 PO; +LAXA15TA PO; +NAPR-1405 PO; -NAPR500T6 PO; +PERCOCET PO; +TRAM50TA2 PO
[2024-09-19 18:19] LABS: CALCIUM LEVEL 8.9 MG/DL (8.5-10.1); CARBON DIOXIDE LEVEL 25 MMOL/L (20-31); CHLORIDE LEVEL 110 MMOL/L (98-107); CREATININE FOR GFR 0.87 MG/DL (0.55-1.30); GLOMERULAR FILTRATION RATE > 90.0 (>60); POTASSIUM SERUM 4.3 MMOL/L (3.5-5.1); SODIUM LEVEL 145 MMOL/L (136-145)
[2024-09-19 18:20] LABS: BASO # 0.1 10^3/uL (0.0-0.2); BASO % 0.6 % (0.0-1.0); EOS # 0.3 10^3/uL (0.0-0.5); EOS % 4.0 % (0.0-3.0); LYMPH # 2.2 10^3/uL (1.5-5.0); LYMPH % 26.5 % (24.0-44.0); MONO # 0.6 10^3/uL (0.0-0.8); MONO % 7.2 % (2.0-8.0); NEUTROPHILS # 5.1 10^3/uL (1.5-8.5); NEUTROPHILS % 61.3 % (36.0-66.0); PLATELET COUNT, AUTOMATED 256 10^3/uL (150-450)
== END ==
LOC: M SFHCLERA 11:00
PROVIDERS: ATTEND Family Medicine
DX: Z01.818 Encounter for other preprocedural examination (principal)

== ENCOUNTER 2024-09-25 12:42 | Observation (INO) | payer OTHER ==
[~2024-09-25] VITALS: Ht 157.5 cm; Wt 71.2 kg
[~2024-09-25 12:42] MED LIST changes: -LAXA15TA PO; -PERCOCET PO; -TRAM50TA2 PO
[2024-09-25] MEDS: LR 1,000 ML IV SCH ×2 (13:32→21:48)
[2024-09-25] MEDS: SCOPOLAMINE 1MG TRANSDERMAL PATCH TOP ONE (13:32)
[2024-09-25] MEDS ORDERED: MIDAZOLAM INJ 2 MG/2 ML VIAL As Ordered ONE (13:38)
[2024-09-25] MEDS ORDERED: LIDOCAINE 2% 100 MG/5 ML SDV (FOR ANES.) As Ordered ONE (13:38)
[2024-09-25] MEDS ORDERED: ONDANSETRON 4MG 2ML VIAL As Ordered ONE (13:50)
[2024-09-25] MEDS ORDERED: dexAMETHasone 4 MG/ML 1 ML VIAL As Ordered ONE (13:50)
[2024-09-25] MEDS ORDERED: dexmedeTOMIDine (4 MCG/ML) 200 MCG/50 ML BTL As Ordered ONE (13:54)
[2024-09-25] MEDS ORDERED: SEVOFLURANE INHAL SOLN 250 ML BTL As Ordered ONE (15:41)
[2024-09-25] MEDS: ceFAZolin SOD 2 GM IV ONCE IV ONE (16:02)
[2024-09-25] MEDS: HEPARIN SOD 5000 UNITS/ML 1 ML VIAL/SYRINGE SQ ONE (16:25)
[2024-09-25] MEDS: GENTAMICIN SULF 80 MG/2 ML VIAL As Ordered ONE (16:38)
[2024-09-25] MEDS ORDERED: HYDROmorphone HCL 2 MG/ML 1 ML VIAL As Ordered ONE (18:07)
[2024-09-25] MEDS ORDERED: SUGAMMADEX SODIUM 200 MG/2 ML VIAL As Ordered ONE (18:13)
[2024-09-25] MEDS ORDERED: ONDANSETRON 4MG 2ML VIAL IV PRN (19:25)
[2024-09-25] MEDS: HYDROMORPHONE HCL 0.5 MG/0.5 ML SYRINGE IV PRN (19:33)
[2024-09-25] MEDS: ONDANSETRON 4MG 2ML VIAL IV PRN (19:33)
[2024-09-25 20:14] VITALS: BP 114/72; TEMP 97.3; O2SAT 94
[2024-09-25 21:06] VITALS: BP 123/76; TEMP 97.2; O2SAT 91
[2024-09-25 21:36] VITALS: BP 114/75; TEMP 97; O2SAT 93
[2024-09-25] MEDS: PERCOCET 5MG/325MG TAB PO PRN (21:47)
[2024-09-25 22:36] VITALS: BP 117/65; TEMP 97.2; O2SAT 92
[2024-09-25 23:36] VITALS: BP 114/69; TEMP 96.5; O2SAT 96
[2024-09-26] MEDS: traMADol 50 MG TAB PO PRN (00:07)
[2024-09-26] MEDS: ceFAZolin SODIUM 2 GM in DEXTROSE 5% (D5W) ADV/MINI-BAG 50 ML IV SCH (00:09)
[2024-09-26 00:36] VITALS: BP 108/68; TEMP 97; O2SAT 93
[2024-09-26 01:36] VITALS: BP 106/82; TEMP 97.1; O2SAT 97
[2024-09-26] MEDS: ACETAMINOPHEN 325 MG TAB PO PRN (04:41)
[2024-09-26 05:36] VITALS: BP 110/55; TEMP 96.2; O2SAT 96
[2024-09-26] MEDS ORDERED: LAXA15TA PO (07:29)
[2024-09-26] MEDS ORDERED: HOME MED LIST COMPLETE! XX SCH (07:30)
[2024-09-26 08:00] VITALS: BP 112/66; TEMP 99.2; O2SAT 98
[2024-09-26 12:00] VITALS: BP 110/60; TEMP 97.2; O2SAT 97
[2024-09-26] MEDS ORDERED: PERCOCET PO (14:07)
[2024-09-26] MEDS ORDERED: TRAM50TA2 PO (15:24)
== END 2024-09-26 15:50 | disposition home or self-care (01) ==
LOC: M SDC 12:42 → M RR INP 12:43 → M MS5PR 20:15
PROVIDERS: ADMIT Plastic Surgery Surgery of the Hand; ATTEND Plastic Surgery Surgery of the Hand
DX: M54.07 Panniculitis affecting regions of neck and back, lumbosacral region (principal); F41.9 Anxiety disorder, unspecified; F32.A Depression, unspecified; F12.10 Cannabis abuse, uncomplicated
CPT/HCPCS: 15830; 15847; 81025; 88300; 96365; 96366; J0665; J0666; J0690; J1100; J1171; J1580; J2250; J2405; J3010